=== PATIENT | female | born 1990 | race African-American/Black ===

== ENCOUNTER 2019-06-04 01:08 | Inpatient (IN) | payer OTHER ==
[2019-06-04] VITALS (7 sets, daily range): BP systolic 150–232; BP diastolic 85–134
[~2019-06-04] VITALS: Ht 172.7 cm; Wt 67.1 kg
--- NOTE | ~2019-06-04 | P ---
[facility] [place] [address] PROCEDURE REPORT Name: ODESSA JUARES Room #: 458-P [facility] IN .#: [id number] Admission: 06/04/19 ������������������ Attend Phys: Anjel Tuttle MD Discharge: ������������������ Date of : 88 Report #: [id number] THIS REPORT FOR: //name// CC: Anjel Lama MD DATE OF SERVICE: 06/06/2019 INPATIENT UPPER ENDOSCOPY BRIEF HISTORY: The patient is a 28-year-old woman with history of diabetes and also chronic nausea and vomiting. She has had symptoms for 4-5 years. She has been evaluated at [facility] in the past and was told she had gastroparesis. She reports that metoclopramide and transdermal scopolamine patch have not been helpful. She was admitted with persistent symptoms. It is also noted that she is a habitual marijuana user and uses it twice daily. PREOPERATIVE DIAGNOSIS: Worsening nausea and vomiting. POSTOPERATIVE DIAGNOSIS: Moderately severe diffuse gastritis. MEDICATIONS: Deep sedation with propofol per anesthesia. SPECIMENS: Biopsies of gastritis. ESTIMATED BLOOD LOSS: 3 mL. PROCEDURE: Esophagogastroduodenoscopy with biopsy. FINDINGS: Prior to propofol sedation, procedure of upper endoscopy was discussed with the patient as well as potential risks and its complications. She indicates she understands and desires to proceed. DESCRIPTION OF PROCEDURE: With the patient in left lateral decubitus position, the Olympus video endoscope was inserted in the cervical esophagus under direct vision without difficulty. Examination of this organ through its entire length revealed normal esophageal mucosa down the squamocolumnar junction. There is no evidence of ulcers, erosions, Kenny esophagus or hiatus hernia. Scope was advanced into the stomach and was examined on end view as well as retroflexed views. I did not see endoscopic evidence of gastroparesis with retained solids in the stomach. There was no evidence of outlet obstruction. There was erythema of the entire stomach. It was primarily in a linear configuration; however, the mucosa was intact, and no ulcers or erosions were seen. Upon retroflexion, no mass lesions were seen. A hiatus hernia was not seen. The pylorus was normal. Duodenal bulb was normal. Postbulbar duodenal sweep was [facility] [address] [place] [address] PROCEDURE REPORT Name: ODESSA JUARES Channing Room #: 458-P [facility] IN [facility].#: [id number] Admission: 06/04/19 ������������������ Attend Phys: Anjel Tuttle MD Discharge: ������������������ Date of : 89 Report #: [id number] inspected and noted to be unremarkable. At that point, the scope was slowly withdrawn and careful circumferential views confirmed the above findings. The patient tolerated the procedure well. DISPOSITION: The patient with worsening nausea and vomiting, which has been chronic. No abnormalities were noted on her examination today. She reports metoclopramide has not been helpful and transdermal scopolamine patch not been helpful. She has been using Zofran. She also has continued to smoke marijuana. At this time, would recommend she discontinue smoking marijuana, which may exacerbate her symptoms. She had a normal gastric emptying study yesterday. We can try erythromycin before meals and at bedtime. She also notes that her symptoms seem to worsen around the time of her menses. We will follow up on biopsies and make further recommendations. Also, ask the dietitian to see the patient with regards to gastroparesis and nausea and vomiting. ��������������������������������������������� ���������������������������������������� By: ��������������������������������������������� 1302 2213 Jewel Bush MD /nt
[~2019-06-04 01:08] MED LIST: APAP500 PO; HUMALOG100 UNIT/2 SQ; HUMULIN N100 UNIT/1 SUBQ; HUMULIN N100 UNIT/3 SQ; LANTUS100 UNIT/M SUBQ; PRENATAL COMPL1 EACH PO
[2019-06-04 01:36] LABS: BASOPHILS 0.5 % (0.0-2.0); EOSINOPHILS 0.1 % (0.0-3.0); HEMATOCRIT 33.4 % (37.0-47.0); HEMOGLOBIN 10.9 gm/dL (12.0-15.0); LYMPHOCYTES 10.6 % (24.0-44.0); MCH 29.6 pg (26.0-34.0); MCHC 32.6 g/dL (28.0-37.0); MONOCYTES 2.7 % (1.0-8.0); PLATELET COUNT 269 thou/uL (150-400); POLYS 86.1 % (36.0-66.0); RBC 3.67 mil/uL (4.20-5.00); RDW 14.6 % (10.5-14.5); WBC 11.6 thou/uL (4.0-11.0)
[2019-06-04 01:44] LABS: CALCIUM 8.8 mg/dL (8.5-10.1); CREATININE 4.3 mg/dL (0.6-1.0); POTASSIUM 4.4 mmol/L (3.5-5.1)
[2019-06-04] MEDS ORDERED: LISINOPRIL20 MG PO (01:45)
[2019-06-04 01:50] LABS: ALBUMIN 3.2 g/dL (3.4-5.0); TOTAL BILIRUBIN 0.6 mg/dL (<0.1-1.0); TOTAL PROTEIN 7.3 g/dL (6.4-8.2)
[2019-06-04 01:58] LABS: BE(vivo) -4.4 mmol/L (-2 to +3); HCO3 20.3 mmol/L (22.0-26.0); PO2 VENOUS 42.2 mmHg (35.0-45.0)
--- NOTE | 2019-06-04 06:00 | NUR ---
PT ARRIVED ON THE UNIT @0320 WITH C/O LOWER BACK PAIN AND N/V. EMESIS NOTED AND SENT TO LAB. PAIN MEDS GIVEN AND FLUIDS ALSO INFUSING. PT A&OX4. POC DONE AND CALL LIGHT WITHIN REACH. WILL CONTINUE TO MONITOR TILL EOS
--- NOTE | 2019-06-04 10:10 | NUR ---
Chart reviewed and case discussed with the care team. Pt admitted d/t nausea/vomiting and ARF. GI consult and kub pending. Pt is an insulin depend diabetic. She has health insurance [employer] and and was indep prior to admission. She is up ad raine in her room. She lives with her spouse and children. No cm interventions indicated at this time. Will remain available should dc needs arise.
--- NOTE | 2019-06-04 20:06 | NUR ---
Assumed pt care this am, pain was managed with medication. N and V has resolved for this shift. Maintained on clear liquids, for gastric emptying test dayna am, advised to be NPO post midnight and not to have any narcotics as well. endorsed to the night nurse. No signs of distrss have been noted not orther issues verbalized by the pt. POC followed.
[2019-06-05 03:15] VITALS: BP 151/87
--- NOTE | 2019-06-05 04:26 | NUR ---
ASSUMED CARE OF PT AT 1900HRS. PT IS AOX4 AND CALLS FOR HELP NEEDED. PT REPORTED SOME PAIN AND N/V. PT HAD 2 EMISIS EPISODE THIS SHIFT. PT WAS NPO SINCE MIDNIGHT. PT WAS ABLE TO GET COMFORTABLE AND SLEEP THIS SHIFT. NO OTHER S/S OF ACUTE DISTRESS. WILL CONTINUE TO MONITOR.
[2019-06-05 05:45] LABS: HEMATOCRIT 27.9 % (37.0-47.0); HEMOGLOBIN 9.4 gm/dL (12.0-15.0); MCH 30.7 pg (26.0-34.0); MCHC 33.6 g/dL (28.0-37.0); MCV 91.3 fL (80.0-100.0); RBC 3.06 mil/uL (4.20-5.00); RDW 14.5 % (10.5-14.5); WBC 7.9 thou/uL (4.0-11.0)
[2019-06-05 05:58] LABS: ALBUMIN 2.3 g/dL (3.4-5.0); CALCIUM 7.8 mg/dL (8.5-10.1); CREATININE 3.8 mg/dL (0.6-1.0); POTASSIUM 4.2 mmol/L (3.5-5.1)
[2019-06-05 07:34] VITALS: BP 166/95
[2019-06-05 16:07] VITALS: BP 153/95
--- NOTE | 2019-06-05 16:54 | NUR ---
QUIET UNEVENTFUL DAY. DENIED NAUSEA/VOMITING. HAD GASTRIC EMPTYING STUDY THIS AM. RETURNED TO ROOM AROUND 12 NOON. PROVIDED CLEAR LIQUIDS. MAIN COMPLAINT IS HEAD, STOMACH AND BACK PAIN FROM VOMITING ALL LAST NIGHT. HAS NOT VOMITED TODAY. WILL TRY A SOFT DIET FOR SUPPER. INSTRUCTED TO REMAIN NPO AFTER MIDNIGHT FOR EGD IN AM. CONSENT SIGNED.
[2019-06-05 17:27] LABS: URINE BILIRUBIN NEGATIVE (Negative); URINE BLOOD 3+ (Negative); URINE CLARITY CLEAR; URINE COLOR YELLOW; URINE GLUCOSE-RANDOM* TRACE (Negative); URINE KETONES NEGATIVE (Negative); URINE LEUKOCYTES NEGATIVE (Negative); URINE NITRITE NEGATIVE (Negative); URINE PROTEIN (DIPSTICK) 3+ (Negative); URINE UROBILINOGEN 0.2 E.U./dl (0.2-1.0)
[2019-06-05 17:38] LABS: CASTS None Seen /LPF (None Seen); SQUAMOUS >10 Many /LPF (0-3)
[2019-06-05 17:39] LABS: BACTERIA 1-9 Few /HPF (None Seen); CRYSTALS None Seen /LPF (None Seen); URINE WBC 0-5 Rare /HPF (0-5)
[2019-06-05 19:29] VITALS: BP 141/84
--- NOTE | 2019-06-06 03:56 | NUR ---
pain controlled this shift.patient is up at raine. patient has been npo since midnight. nausea meds given x1. patient refused insulin d/t being npo and not being able to eat. patient in bed asleep at this time breathing regular and unlaboured.
[2019-06-06 05:14] VITALS: BP 180/90
[2019-06-06 05:41] LABS: HEMATOCRIT 30.7 % (37.0-47.0); HEMOGLOBIN 10.2 gm/dL (12.0-15.0); MCH 30.2 pg (26.0-34.0); MCHC 33.2 g/dL (28.0-37.0); MCV 91.1 fL (80.0-100.0); RBC 3.37 mil/uL (4.20-5.00); RDW 14.7 % (10.5-14.5)
[2019-06-06 05:52] LABS: CALCIUM 7.2 mg/dL (8.5-10.1); CREATININE 3.4 mg/dL (0.6-1.0); PHOSPHORUS 2.8 mg/dL (2.5-4.9); POTASSIUM 4.1 mmol/L (3.5-5.1)
--- NOTE | 2019-06-06 07:39 | HC ---
[facility] [place] [address] CONSULTATION Name: ODESSA JUARES Room #: 458-P [facility] IN ..#: [id number] Admission: 06/04/19 ������������������ Attend Phys: Anjel Tuttle MD Discharge: ������������������ Date of : 88 Report #: [id number] THIS REPORT FOR: //name// CC: Anjel Lama REASON FOR CONSULTATION: Elevated creatinine. REASON FOR THE PRESENTATION: Abdominal pain. HISTORY OF PRESENT ILLNESS: This is a 28-year-old who tells me that she has been diabetic since the age of 10. She also tells me that she has been hospitalized on numerous occasions for her current symptoms, which include persistent nausea and vomiting. She was last seen at [facility] as per the patient. She has been taking marijuana to help her with the nausea and vomiting. She is presenting with the symptoms mentioned above and was found to have an elevated creatinine at 4.3 and was admitted for further evaluation and management. She was told that she has proteinuria in the past. She does not know her baseline kidney function. She is maintained on lisinopril. She did admit to diabetic retinopathy. She has had multiple pregnancies in the past, one of them ended up with an eclampsia event. I am being consulted to manage her acute kidney injury. PAST MEDICAL HISTORY: Diabetes mellitus and hypertension. PAST SURGICAL HISTORY: Cholecystectomy. SOCIAL HISTORY: She admits to marijuana usage. FAMILY HISTORY: Strong family history of diabetes mellitus. REVIEW OF SYSTEMS: GENERAL: No fever or chills. CARDIOVASCULAR: No chest pain or palpitation. No syncope. PULMONARY: No cough or hemoptysis. GASTROINTESTINAL: As per history of present illness. MUSCULOSKELETAL: No back pain. No joints pain. NEUROLOGICAL: No weakness. No numbness. SKIN: No rash or ulcerations. MEDICATIONS: The patient's current outpatient medications listed include lisinopril and Lantus. PHYSICAL EXAMINATION: VITAL SIGNS: Blood pressure is elevated at 166/95. HEAD AND NECK: No jugular venous distention, no bruit, no thyromegaly. CHEST: No crackles. [facility] [address] [address] CONSULTATION Name: ODESSA JUARES Room #: 458-P [facility]#: [id number] Admission: 06/04/19 ������������������ Attend Phys: Anjel Tuttle MD Discharge: ������������������ Date of : 88 Report #: [id number] CARDIOVASCULAR: No rub detected. ABDOMEN: Soft, nontender with no hepatosplenomegaly. LOWER EXTREMITIES: No edema with intact peripheral pulses. LABORATORY VALUES: From today were reviewed. Creatinine is down to 3.8 from a value of 4.3 yesterday. ASSESSMENT, IMPRESSION AND PLAN: 1. Acute kidney injury. 2. Diabetes mellitus. 3. Ongoing gastrointestinal symptoms. 4. Hypertension. 5. I am not really sure about the patient's baseline kidney function, but the fact that she had diabetic retinopathy in the past entail that she might be having an underlying chronic kidney disease related to longstanding diabetes mellitus. I will initiate the appropriate workup for the patient. 6. Obtain urine studies. 7. Obtain an ultrasound of the kidneys. 8. Keep on IV fluid. 9. Avoid nephrotoxins. 10. Gastrointestinal workup in progress. 11. We will ultimately need to be back on her lisinopril. 12. Obtain her [facility] medical records. 13. We will continue to follow during her hospital stay. ��������������������������������������������� <ELECTRONICALLY SIGNED> ���������������������������������������� By: Lars Roe MD ��������������������������������������������� 06/06/1940 8 Lars Roe MD /nt
[2019-06-06 07:43] VITALS: BP 159/98
[2019-06-06 14:10] VITALS: BP 142/88
[2019-06-06 17:35] LABS: URINE CREATININE-RANDOM* 55.7 mg/dL
--- NOTE | 2019-06-06 17:58 | NUR ---
Assumed pt care this am, pt was npo for the EGD. Pt has verbalized the presence of pain in her abdomen, managed with pain meds through out the shift. Blood sugar checks done, refused insulin while she was npo. Urine sample collected and sent to the lab. Nausea was noted early this am, relief after medication was given. POC followed, pt is passing gas but has not had a bowel movement, medication given cfluid intake and ambulation encouraged.
[2019-06-06 20:20] VITALS: BP 139/82
[2019-06-07 04:30] VITALS: BP 124/74
--- NOTE | 2019-06-07 07:19 | NUR ---
PATIENT ALERT AND ORIENTED X4. UP IN ROOM BY SELF. ACCUCHECK 97, SANDWICH GIVEN. ACCUCHECK TAKEN AGAIN AT 2215. WAS 178, LANTUS INSULIN GIVEN AT THAT TIME. C/O PAIN DURING NIGHT, MED GIVEN. THIS AM C/O NAUSEA, MED GIVEN.SLEPT OFF AND ON DURING NIGHT.
[2019-06-07 08:00] VITALS: BP 133/85
--- NOTE | 2019-06-07 14:13 | NUR ---
PT RESTING IN HER ROOM WATCHING TV. PT IS TO DISCHARGE TODAY WHEN PUT'S ORDERS IN COMPUTER. AND FRIEND AT BEDSIDE. PT W/O PAIN OR RESP DISTRESS AT THIS TIME. PT SELF CARE WITH ADLS. IS AMBULATORY. PLEASANT AND COOPERATIVE WITH CARE.
[2019-06-07] MEDS ORDERED: ERYTHROMYCIN250 M1 PO (14:42)
[2019-06-07] MEDS ORDERED: CARVEDILOL12.5 MG PO (14:42)
[2019-06-07] MEDS ORDERED: NORVASC5 MG PO (14:43)
[2019-06-07] MEDS ORDERED: COZAAR 50 MG TA50 M1 PO (14:43)
[2019-06-07] MEDS ORDERED: PROTONIX40 M1 PO (14:44)
[2019-06-07 15:08] VITALS: BP 133/85
[2019-06-07 15:57] VITALS: BP 133/85
[2019-06-07 16:05] LABS: ALBUMIN 2.3 g/dL (3.4-5.0); CALCIUM 7.7 mg/dL (8.5-10.1); CREATININE 3.9 mg/dL (0.6-1.0)
[2019-06-08 02:08] LABS: COMPLEMENT-C3 83 mg/dL (82-167); COMPLEMENT-C4 23 mg/dL (14-44)
[2019-06-09 13:07] LABS: ANA INTERPRETATION Negative (Negative)
--- NOTE | 2019-06-09 14:06 | PATH ---
[facility] [address] [address] [address] PATHOLOGY RPT PROCEDURE Name: ODESSA JUARES Channing Room #: 458-P DIS IN M.R.#: [id number] ������������������ Admission: 06/04/19 ������������������ Date of : 88 Discharge: 06/07/19 Report #: [id number] Path Case #: [id number] [facility] Accession Number: [id number] . 01 Material submitted: . stomach - BX GASTRITIS R/O H PYLORI . 01 Clinical history: . Gastritis, nausea, vomiting. . 02 Diagnosis: Gastric biopsy "gastric biopsy": - Mild chronic reactive gastropathy. - The immunoperoxidase stain for Helicobacter pylori is negative. ([facility]:[place]; 06/09/2019) QMS/06/09/2019 . 02 Electronically signed: . Quinton Sousa MD, Pathologist NPI- [id number] . 01 Gross description: . Received in formalin labeled "[place] Juares, biopsy gastritis rule out H. pylori" is a 1.3 x 0.4 x 0.2 cm aggregate of zarco-brown mucosa fragments. The specimen is submitted in A1. ([facility]; 06/08/2019) SYC/SYC . 02 Pathologist provided ICD-10: K31.9 . 02 CPT . 229161, Q45038 Specimen Comment: A courtesy copy of this report has been sent to Specimen Comment: [phone], , . Specimen Comment: Report sent to ,DR LAMBERT / DR MARTINEZ Specimen Comment: A duplicate report has been generated due to demographic updates. Performed at: [address], [place] [id number] MD Venkata Go MD Phone: [phone] Performed at: [address] [id number] MD Smitha Box MD Phone: [phone]
== END 2019-06-07 15:59 | disposition home or self-care (01) | DRG 391 ==
LOC: ER 01:08 → 4W 02:37 → EROBS 02:37 → 4W 03:20
PROVIDERS: Emergency Medicine; Hospitalist; Nurse Practitioner Family; ADMIT Hospitalist
PROC: 0DJ08ZZ Inspection of Upper Intestinal Tract, Via Natural or Artificial Opening Endoscopic (ICD-10-PCS; principal; 2019-06-06)
DX: K29.70 Gastritis, unspecified, without bleeding (principal); N17.0 Acute kidney failure with tubular necrosis; E11.43 Type 2 diabetes mellitus with diabetic autonomic (poly)neuropathy; K31.84 Gastroparesis; G43.909 Migraine, unspecified, not intractable, without status migrainosus; F17.210 Nicotine dependence, cigarettes, uncomplicated; F12.90 Cannabis use, unspecified, uncomplicated; N92.0 Excessive and frequent menstruation with regular cycle; D64.9 Anemia, unspecified; K59.00 Constipation, unspecified; E11.319 Type 2 diabetes mellitus with unspecified diabetic retinopathy without macular edema; N18.9 Chronic kidney disease, unspecified; E11.22 Type 2 diabetes mellitus with diabetic chronic kidney disease; I12.9 Hypertensive chronic kidney disease with stage 1 through stage 4 chronic kidney disease, or unspecified chronic kidney disease; E11.40 Type 2 diabetes mellitus with diabetic neuropathy, unspecified; Z90.49 Acquired absence of other specified parts of digestive tract; Z83.3 Family history of diabetes mellitus; Z79.4 Long term (current) use of insulin; Z79.899 Other long term (current) drug therapy; Z98.891 History of uterine scar from previous surgery
CPT/HCPCS: 10040; 62110; 62900; 70005

== ENCOUNTER 2019-08-11 15:28 | Inpatient (IN) | payer OTHER ==
[~2019-08-11] VITALS: Ht 172.7 cm; Wt 70.3 kg
--- NOTE | ~2019-08-11 | HC ---
[facility] [place] [address] CONSULTATION Name: ODESSA JUARES Room #: 219-P [facility] IN ..#: [id number] Admission: 08/11/19 Attend Phys: Parth Blandon MD Discharge: Date of : 89 Report #: [id number] THIS REPORT FOR: //name// CC: Parth Lama DATE OF SERVICE: 08/12/2019 REASON FOR CONSULTATION: End-stage renal disease with an elevated creatinine. REASON FOR PRESENTATION: Persistent nausea and vomiting. HISTORY OF PRESENT ILLNESS: This is a 29-year-old who is well known to me. She has end-stage renal disease with significant interstitial fibrosis and kidney damage on her kidney biopsy that was done few months ago. She runs a baseline creatinine of around 3.0. She has issues with persistent nausea and vomiting, none related to her CKD and end-stage renal disease. She presented with similar symptoms. She had extensive workup done in the past. She has noncompliance with medical care and she did not show up for her kidney education class. She wanted us to file for disability for her. When my nurse practitioner informed the patient that we cannot file for her disability and give her time off work, she was very upset and threatened to go to another physician. She presented yesterday with the same symptoms and was admitted to be further evaluated. She has history of diabetes mellitus. She is also known to have significant hypertension and has a significantly elevated blood pressure on her presentation. PAST MEDICAL HISTORY: 1. CKD stage 4. 2. Diabetes mellitus. 3. Hypertension. MEDICATIONS: 1. Losartan. 2. Amlodipine. 3. Pantoprazole. 4. Insulin. PAST SURGICAL HISTORY: 1. . 2. Right wrist fracture. 3. Recent kidney biopsy. SOCIAL HISTORY: Admits to marijuana, but she quit that per her about a month ago. She continues to smoke. [facility] [address] [place] [address] CONSULTATION Name: ODESSA JUARES Room #: 219-P [facility] IN [facility]#: [id number] Admission: 08/11/19 Attend Phys: Parth Blandon MD Discharge: Date of : 89 Report #: [id number] REVIEW OF SYSTEMS: GENERAL: Significant for weakness. CARDIOVASCULAR: No chest pain or palpitation. PULMONARY: No cough or hemoptysis. GASTROINTESTINAL: As per the history of present illness. GENITOURINARY: No frequency, no urgency. PHYSICAL EXAMINATION: GENERAL: The patient is alert and oriented. VITAL SIGNS: Blood pressure is 145/91. She is febrile with a temperature of 38.2. HEAD AND NECK: No jugular venous distention. CHEST: No crackles. CARDIOVASCULAR: No rub detected. ABDOMEN: Soft. Slight tenderness. LOWER EXTREMITIES: No edema with intact peripheral pulses. LABORATORY DATA: Reviewed. Hemoglobin is 10.3. Sodium is 138, potassium is 4.9, BUN is 29, creatinine is 5.1. Blood sugar is 161. IMPRESSION AND PLAN: 1. Chronic kidney disease, stage 4. 2. Acute kidney injury. 3. Persistent nausea and vomiting. 4. Diabetes mellitus. 5. Hypertension. 6. The patient is not uremic. Her current BUN and creatinine do not justify her recurrent issues with nausea and vomiting. There is no indication to initiate the patient on dialysis. We have explained for the patient that she will need to be seen in our outpatient clinic to arrange for her long-term kidney failure. The patient was not been biopsied, but we could not find her papers for disability and deter some time off from her work. She was threatening to find another physician who can handle those issues. She was informed that she ____ seek another opinion. As for now, I would continue with the IV fluid, symptomatic treatment for her nausea and vomiting. She had extensive workup for her nausea and vomiting and those laboratory, imaging were nonrevealing. She most recently had an EGD. I will check the patient's urine for substance screen given her marijuana abuse. Continue to pet adoption counselor about her medical care. By: 1129 2236 Lars Roe MD /nt
[~2019-08-11 15:28] MED LIST changes: +CARVEDILOL12.5 MG PO; +COZAAR 50 MG TA50 M1 PO; +ERYTHROMYCIN250 M1 PO; +LISINOPRIL20 MG PO; +NORVASC5 MG PO; +PROTONIX40 M1 PO
[2019-08-11 15:29] VITALS: BP 162/101
[2019-08-11 15:52] LABS: URINE BILIRUBIN NEGATIVE (Negative); URINE BLOOD 3+ (Negative); URINE CLARITY CLEAR; URINE COLOR YELLOW; URINE GLUCOSE-RANDOM* 1+ (Negative); URINE KETONES NEGATIVE (Negative); URINE LEUKOCYTES TRACE (Negative); URINE NITRITE NEGATIVE (Negative); URINE PROTEIN (DIPSTICK) 3+ (Negative); URINE UROBILINOGEN 0.2 E.U./dl (0.2-1.0)
[2019-08-11 16:02] LABS: BACTERIA None Seen /HPF (None Seen); CASTS None Seen /LPF (None Seen); CRYSTALS None Seen /LPF (None Seen); SQUAMOUS >10 Many /LPF (0-3); URINE RBC >20 Many /HPF (0-2)
[2019-08-11 16:14] LABS: ABSOLUTE NEUTROPHILS 6.1 thou/uL (1.4-8.2); BASOPHILS 0.6 % (0.0-2.0); EOSINOPHILS 0.6 % (0.0-3.0); HEMATOCRIT 31.3 % (37.0-47.0); HEMOGLOBIN 10.3 gm/dL (12.0-15.0); LYMPHOCYTES 17.4 % (24.0-44.0); MCH 29.9 pg (26.0-34.0); MCHC 32.8 g/dL (28.0-37.0); MCV 91.1 fL (80.0-100.0); PLATELET COUNT 268 thou/uL (150-400); POLYS 78.4 % (36.0-66.0); RBC 3.44 mil/uL (4.20-5.00); RDW 14.3 % (10.5-14.5); WBC 7.7 thou/uL (4.0-11.0)
[2019-08-11 16:24] LABS: CALCIUM 8.6 mg/dL (8.5-10.1); CREATININE 5.1 mg/dL (0.6-1.0); POTASSIUM 4.9 mmol/L (3.5-5.1)
[2019-08-11 16:29] LABS: ALBUMIN 2.8 g/dL (3.4-5.0); TOTAL BILIRUBIN 0.3 mg/dL (<0.1-1.0); TOTAL PROTEIN 6.9 g/dL (6.4-8.2)
[2019-08-11 19:16] LABS: URINE BILIRUBIN NEGATIVE (Negative); URINE BLOOD 3+ (Negative); URINE GLUCOSE-RANDOM* 1+ (Negative); URINE KETONES TRACE (Negative); URINE PROTEIN (DIPSTICK) 3+ (Negative); URINE SPECIFIC GRAVITY 1.015 (1.005-1.035)
[2019-08-11 19:18] LABS: URINE CLARITY TURBID; URINE COLOR RED; URINE LEUKOCYTES-REFLEX 1+ (Negative); URINE NITRITE-REFLEX POSITIVE (Negative)
[2019-08-11 19:22] LABS: CASTS None Seen /LPF (None Seen); CRYSTALS None Seen /LPF (None Seen); SQUAMOUS 0-3 Few /LPF (0-3); URINE RBC >20 Many /HPF (0-2)
[2019-08-11 19:23] LABS: BACTERIA-REFLEX 1-9 Few /HPF (None Seen); URINE WBC-REFLEX 6-15 Few /HPF (0-5)
[2019-08-12 10:34] VITALS: BP 152/103
[2019-08-12 11:20] VITALS: BP 145/91
[2019-08-12 11:49] VITALS: BP 142/85
--- NOTE | 2019-08-12 11:54 | NUR ---
PT ORIENTED TO ROOM AND UNIT. BED LOW AND LOCKED, SIDE RAILS UP X3 CALL LIGHT IN REACH. TELE APPLIED. WILL CONTINUE TO ASSESS.
[2019-08-12 16:24] VITALS: BP 142/88
--- NOTE | 2019-08-12 16:48 | NUR ---
REPORT GIVEN TO ROGERS WALKER.
--- NOTE | 2019-08-12 17:41 | NUR ---
ASSUMED PT CARE AT APPROXIMATELY 1700. PT A&O X4. PT DENIES HAVING CHEST PAIN. PT DENIES HAVING SOB. VITAL SIGNS STABLE. BLOOD SUGARS STABLE. PT STATED SHE DOES HAVE 7/10 PAIN IN HER ABD AND LOWER BACK. PT RECEIVED PRN ANALGESIC. PT STATED THE ANALGESIC HELPS RELEIVE PAIN. PT STATES SHE DOES HAVE NAUSEA. PT RECEIVED MEDICATION FOR NAUSEA. PT STATED MEDICATION RELIEVES NAUSEA. PT COMFORTABLE IN BED.
[2019-08-12 19:32] VITALS: BP 151/98
[2019-08-13 04:45] VITALS: BP 167/92
--- NOTE | 2019-08-13 05:17 | NUR ---
ASSUMED PT CARE AT 1900. PT VSS. PT C/O ABD AND LOWER BACK PAIN. MEDICATION GIVEN WIT A PARTIAL RELIEF. PT HAD ZERO COMPLAINTS OF NAUSEA. PT INSULIN WAS WITHHELD DUE TO LOW BS. PT HAD LOW BS AND GIVEN OJ WITH ICE CREAM AND BS INCREASED. PT SLEEPING. WILL CONTINUE TO MONITOR PT PER POC.
[2019-08-13 05:19] LABS: ALBUMIN 2.2 g/dL (3.4-5.0); CALCIUM 7.9 mg/dL (8.5-10.1); CREATININE 4.5 mg/dL (0.6-1.0); PHOSPHORUS 4.3 mg/dL (2.5-4.9); POTASSIUM 4.6 mmol/L (3.5-5.1)
[2019-08-13 11:32] VITALS: BP 180/100
[2019-08-13 11:55] VITALS: BP 162/97
== END 2019-08-13 12:16 | disposition home or self-care (01) | DRG 682 ==
LOC: ER 15:28 → 2N 18:50 → EROBS 18:50 → 2N 08-12 11:36
PROVIDERS: Emergency Medicine; Hospitalist; Physician Assistant; ADMIT Hospitalist
DX: N17.9 Acute kidney failure, unspecified (principal); E43 Unspecified severe protein-calorie malnutrition; N39.0 Urinary tract infection, site not specified; N18.6 End stage renal disease; E10.43 Type 1 diabetes mellitus with diabetic autonomic (poly)neuropathy; E10.22 Type 1 diabetes mellitus with diabetic chronic kidney disease; F12.10 Cannabis abuse, uncomplicated; F17.210 Nicotine dependence, cigarettes, uncomplicated; K31.84 Gastroparesis; G43.909 Migraine, unspecified, not intractable, without status migrainosus; I12.9 Hypertensive chronic kidney disease with stage 1 through stage 4 chronic kidney disease, or unspecified chronic kidney disease; E86.0 Dehydration; Z79.899 Other long term (current) drug therapy; Z90.49 Acquired absence of other specified parts of digestive tract; Z79.4 Long term (current) use of insulin; Z98.891 History of uterine scar from previous surgery; Z91.19 Patient's noncompliance with other medical treatment and regimen; Z68.23 Body mass index [BMI] 23.0-23.9, adult
CPT/HCPCS: 10081

== ENCOUNTER 2019-08-15 15:20 | Emergency (ER) | payer OTHER ==
[~2019-08-15] VITALS: Ht 172.7 cm; Wt 72.6 kg
[2019-08-15 15:42] LABS: URINE BILIRUBIN NEGATIVE (Negative); URINE BLOOD 2+ (Negative); URINE CLARITY CLEAR; URINE COLOR YELLOW; URINE GLUCOSE-RANDOM* 1+ (Negative); URINE KETONES NEGATIVE (Negative); URINE LEUKOCYTES-REFLEX NEGATIVE (Negative); URINE NITRITE-REFLEX NEGATIVE (Negative); URINE PROTEIN (DIPSTICK) 2+ (Negative); URINE UROBILINOGEN 0.2 E.U./dl (0.2-1.0)
[2019-08-15 15:54] LABS: BACTERIA-REFLEX 1-9 Few /HPF (None Seen); CASTS None Seen /LPF (None Seen); CRYSTALS None Seen /LPF (None Seen); SQUAMOUS 0-3 Few /LPF (0-3); URINE RBC 3-10 Few /HPF (0-2); URINE WBC-REFLEX 0-5 Rare /HPF (0-5)
[2019-08-15 15:58] LABS: ABSOLUTE NEUTROPHILS 6.8 thou/uL (1.4-8.2); BASOPHILS 0.4 % (0.0-2.0); EOSINOPHILS 0.3 % (0.0-3.0); HEMATOCRIT 30.7 % (37.0-47.0); LYMPHOCYTES 9.8 % (24.0-44.0); MCH 29.7 pg (26.0-34.0); MCHC 32.7 g/dL (28.0-37.0); MCV 90.9 fL (80.0-100.0); MONOCYTES 1.7 % (1.0-8.0); PLATELET COUNT 244 thou/uL (150-400); POLYS 87.8 % (36.0-66.0); RBC 3.37 mil/uL (4.20-5.00); RDW 14.6 % (10.5-14.5); WBC 7.7 thou/uL (4.0-11.0)
[2019-08-15 16:32] LABS: ALBUMIN 2.9 g/dL (3.4-5.0); CALCIUM 8.4 mg/dL (8.5-10.1); CREATININE 4.8 mg/dL (0.6-1.0); POTASSIUM 4.5 mmol/L (3.5-5.1); TOTAL BILIRUBIN 0.4 mg/dL (<0.1-1.0); TOTAL PROTEIN 6.7 g/dL (6.4-8.2)
[2019-08-15] MEDS ORDERED: PHENERGAN 25 MG25 M1 PO (18:23)
[2019-08-15] MEDS ORDERED: PROMS25 WY RECTAL (18:23)
[2019-08-15] MEDS ORDERED: PEPCID20 MG PO (18:23)
[2019-08-15] MEDS ORDERED: BENTYL 20 MG TA20 M1 PO (18:27)
[2019-08-15 19:50] VITALS: BP 204/102
--- NOTE | 2019-08-16 11:32 | EKG ---
[address] [address] ELECTROCARDIOGRAM REPORT Name: ODESSA JUARES Room #: [facility]#: [id number] Admission: 08/15/19 Attend Phys: Discharge: 08/15/19 Date of : 89 Report #: [id number] THIS REPORT FOR: //name// [facility] ED Test Date: 2019-08-15 Test Time: 15:42:01 Pat Name: ODESSA JUARES Department: Room: Gender: F Hotel Maid: goran : 1990 Requested By: Venkata Pillai Order Number: [id number] MD: Lg Mei Measurements Intervals [place] Rate: 86 P: 51 NC: 129 QRS: 52 QRSD: 78 T: 16 QT: 368 QTc: 440 Interpretive Statements Sinus rhythm Borderline T wave abnormalities Compared to ECG 01/31/2016 08:21:35 T-wave abnormality now present Electronically Signed On 08-16-2019 11:31:44 CDT by Lg Mei [email or web address] <ELECTRONICALLY SIGNED> By: Lg Mei MD 08/16/19 1131 1542 1542 Lg Mei MD /YURIDIA
== END 2019-08-15 19:50 | disposition still patient (30) ==
LOC: ER 15:20
PROVIDERS: Emergency Medicine
DX: E11.43 Type 2 diabetes mellitus with diabetic autonomic (poly)neuropathy (principal); K31.84 Gastroparesis; R11.2 Nausea with vomiting, unspecified; G43.909 Migraine, unspecified, not intractable, without status migrainosus; F17.210 Nicotine dependence, cigarettes, uncomplicated; Z98.890 Other specified postprocedural states; Z79.4 Long term (current) use of insulin

== ENCOUNTER 2020-08-01 23:24 | Observation (INO) | payer OTHER ==
[~2020-08-01] VITALS: Ht 175.3 cm; Wt 62.1 kg
--- NOTE | ~2020-08-01 | HC ---
[facility] [place] [address] CONSULTATION Name: ODESSA JUARES Room #: 458-P [facility] IN ..#: [id number] Admission: 08/02/20 Attend Phys: Sabina Vides MD Discharge: Date of : 89 Report #: [id number] THIS REPORT FOR: cc: Bruce Lama MD,Lars Reza MD, MD ~ CC: Sabina Lama DATE OF SERVICE: 08/02/2020 RENAL CONSULTATION REASON FOR CONSULTATION: Elevated creatinine with end-stage renal disease. REASON FOR PRESENTATION: Not feeling well. HISTORY OF PRESENT ILLNESS: This is a 30-year-old who is maintained on peritoneal dialysis. She has longstanding diabetes mellitus and hypertension. She tends to have recurrent admissions for intractable nausea and vomiting. She had those symptoms in the last few days. She was unable to keep things down. She was started on IV fluid. On arrival to the Emergency Room, she was found to be hypokalemic. She feels much better this morning. She wants to go home. From the end-stage renal disease perspective, the patient was started on hemodialysis a few months ago for her ongoing issues with nausea and vomiting, uremic symptoms. She has longstanding diabetes mellitus. She tends to have flares up of her gastroparesis with frequent improvement after starting her on appropriate medications. PAST MEDICAL HISTORY: 1. End-stage renal disease, maintained on hemodialysis. 2. Diabetes mellitus. 3. Hypertension. MEDICATIONS: 1. Lispro insulin. 2. Lantus insulin. 3. Torsemide. 4. Potassium supplementation. 5. Pantoprazole. 6. Promethazine. ALLERGIES: None. REVIEW OF SYSTEMS: GENERAL: No fever, but significant weakness. [facility] [address] [place] [address] CONSULTATION Name: ODESSA JUARES Channing Room #: 458-P [facility] IN [facility].#: [id number] Admission: 08/02/20 Attend Phys: Sabina Vides MD Discharge: Date of : [birth year] Report #: [id number] CARDIOVASCULAR: No chest pain or palpitation. PULMONARY: No cough or hemoptysis. GASTROINTESTINAL: As per the history of present illness. GENITOURINARY: No frequency, no urgency. FAMILY HISTORY: Significant for diabetes mellitus. SOCIAL HISTORY: She is , lives with her . She has a son. PHYSICAL EXAMINATION: GENERAL: She is awake, alert, oriented, sitting in the bed with no apparent distress. VITAL SIGNS: Blood pressure is 145/87, temperature is 36.8. HEAD AND NECK: No jugular venous distention. CHEST: No crackles. CARDIOVASCULAR: No rub detected. ABDOMEN: Soft, nontender. EXTREMITIES: Lower extremities, no edema. LABORATORY DATA: White blood cell count is 8.1, hemoglobin is 14.5. Sodium is 141, potassium is 2.6, chloride is 96, carbon dioxide 32, BUN is 26, creatinine 17.4. ASSESSMENT, IMPRESSION AND PLAN: 1. End-stage renal disease, maintained on peritoneal dialysis. 2. Hypokalemia. 3. The patient is very adamant about going home. She tells me that she is very anxious about the situation in the hospital and the current COVID-19 status. I could handle her potassium supplementation as an outpatient. She is to continue with the usual peritoneal dialysis regimen. I will leave the decision whether to discharge the patient or not to the primary team. By: 0820 0929 Lars Roe MD /nt
[~2020-08-01 23:24] MED LIST changes: +BENTYL 20 MG TA20 M1 PO; +PEPCID20 MG PO; +PHENERGAN 25 MG25 M1 PO; +PROMS25 WY RECTAL
[2020-08-01 23:28] VITALS: BP 106/71
[2020-08-01] MEDS ORDERED: TORSEMIDE10 MG PO (23:40)
[2020-08-01] MEDS ORDERED: ZESTRIL40 MG PO (23:40)
[2020-08-01] MEDS ORDERED: ROCALTROL0.25 MCG PO (23:40)
[2020-08-01] MEDS ORDERED: RENAL-VITE TAB0.8 MG PO (23:42)
[2020-08-01] MEDS ORDERED: POTASSIUM20 PO (23:42)
[2020-08-02 00:07] LABS: ABSOLUTE NEUTROPHILS 5.1 thou/uL (1.4-8.2); BASOPHILS 0.4 % (0.0-2.0); EOSINOPHILS 2.2 % (0.0-3.0); HEMATOCRIT 44.1 % (37.0-47.0); HEMOGLOBIN 14.5 gm/dL (12.0-15.0); LYMPHOCYTES 26.6 % (24.0-44.0); MCH 29.8 pg (26.0-34.0); MCHC 32.8 g/dL (28.0-37.0); MCV 90.8 fL (80.0-100.0); PLATELET COUNT 196 thou/uL (150-400); POLYS 62.8 % (36.0-66.0); RBC 4.86 mil/uL (4.20-5.00); RDW 14.7 % (10.5-14.5); WBC 8.1 thou/uL (4.0-11.0)
[2020-08-02 00:08] LABS: URINE BILIRUBIN 1+ (Negative); URINE BLOOD TRACE (Negative); URINE CLARITY SL CLOUDY; URINE COLOR YELLOW; URINE GLUCOSE-RANDOM* NEGATIVE (Negative); URINE KETONES TRACE (Negative); URINE NITRITE-REFLEX NEGATIVE (Negative); URINE PROTEIN (DIPSTICK) 3+ (Negative); URINE SPECIFIC GRAVITY >= 1.030 (1.005-1.035); URINE UROBILINOGEN 0.2 E.U./dl (0.2-1.0)
[2020-08-02 00:10] LABS: ICTOTEST (BILI CONFIRMATORY) Positive (Negative); URINE LEUKOCYTES-REFLEX 2+ (Negative)
[2020-08-02 00:18] LABS: CASTS None Seen /LPF (None Seen); CRYSTALS None Seen /LPF (None Seen); MUCUS 0-3 Light strn/LPF (None Seen); SQUAMOUS None Seen /LPF (0-3); URINE RBC 3-10 Few /HPF (0-2); URINE WBC-REFLEX >25 Many /HPF (0-5); YEAST-REFLEX Present (None Seen)
[2020-08-02 00:19] LABS: RENAL EPITHELIAL CELLS 0-3 Few /LPF (None Seen); TRANSITIONAL EPITHEL CELL 0-3 Few /LPF (None Seen)
[2020-08-02 00:27] LABS: ALBUMIN 3.1 g/dL (3.4-5.0); ANION GAP 13 mmol/L (7-16); BUN 26 mg/dL (7-18); CALCIUM 8.9 mg/dL (8.5-10.1); CHLORIDE 92 mmol/L (98-107); CO2 36 mmol/L (21-32); CREATININE 16.1 mg/dL (0.6-1.0); GLUCOSE 165 mg/dL (74-106); LIPASE 60 U/L (73-393); SGOT 9 U/L (15-37); SGPT 14 U/L (30-65); SODIUM 141 mmol/L (136-145); TOTAL BILIRUBIN 0.7 mg/dL (0.2-1.0); TOTAL PROTEIN 7.9 g/dL (6.4-8.2); TROPONIN-I <0.06 ng/mL (<0.06)
[2020-08-02 00:29] LABS: POTASSIUM 2.9 mmol/L (3.5-5.1)
[2020-08-02 01:11] VITALS: BP 127/94
[2020-08-02 01:14] LABS: PROTIME 10.2 Seconds (9.3-11.4)
[2020-08-02 01:24] VITALS: BP 138/80
[2020-08-02 01:40] VITALS: BP 142/87
[2020-08-02 04:26] LABS: CALCIUM 8.4 mg/dL (8.5-10.1); MAGNESIUM 2.6 mg/dL (1.8-2.4)
[2020-08-02 04:28] LABS: CREATININE 17.4 mg/dL (0.6-1.0); POTASSIUM 2.6 mmol/L (3.5-5.1)
[2020-08-02 05:30] VITALS: BP 133/74
--- NOTE | 2020-08-02 08:13 | EKG ---
[facility] [place] [address] ELECTROCARDIOGRAM REPORT Name: ODESSA JUARES Room #: 458-P ADM IN M.R.#: [id number] Admission: 08/02/20 Attend Phys: Sabina Vides MD Discharge: Date of : 88 Report #: [id number] THIS REPORT FOR: cc: Bruce Lama MD, Michael D. MD Couchonnal, Luis F. MD ~ THIS REPORT FOR: //name// [facility] ED Test Date: 2020-08-02 Test Time: 00:25:25 Pat Name: ODESSA JUARES Department: Room: [facility] Gender: F Website/Blog Editor: JESSICA : 1990 Requested By: Chapin Munoz Order Number: [id number] MD: Lg Mei Measurements Intervals [place] Rate: 82 P: 60 OK: 140 QRS: 66 QRSD: 95 T: -74 QT: 391 QTc: 457 Interpretive Statements Sinus rhythm Probable left atrial enlargement Abnormal T, consider ischemia, diffuse leads Compared to ECG 08/15/2019 15:42:01 Possible ischemia now present T-wave abnormality still present Electronically Signed On 08-02-2020 8:13:10 CDT by Lg Mei [email or web address] <ELECTRONICALLY SIGNED> By: Lg Mei MD 08/02/20 0813 Lg eMi MD /EPI
--- NOTE | 2020-08-02 08:18 | NUR ---
Assumed patient care at 0715. Vital signs stable, LSCTA, ABD soft and slightly tender, skin is clean, warm, dry and intact; she rates her abdominal pain at a "level four." Patient is pleasant and cooperative. Dr Roe here this am, he informed this nurse that "patient can go home today." Will inform Dr Vides and prepare patient for Discharge.
[2020-08-02] MEDS ORDERED: CEFUROXIME250 MG PO (10:48)
[2020-08-02 11:23] VITALS: BP 145/87
== END 2020-08-02 12:04 | disposition home or self-care (01) ==
LOC: ER 23:24 → 4W 08-02 00:58 → EROBS 08-02 00:58 → 4W 08-02 01:29
PROVIDERS: Emergency Medicine; Nurse Practitioner Family; ADMIT Hospitalist; ATTEND Hospitalist
DX: R11.2 Nausea with vomiting, unspecified (principal); K31.84 Gastroparesis; I12.0 Hypertensive chronic kidney disease with stage 5 chronic kidney disease or end stage renal disease; E11.22 Type 2 diabetes mellitus with diabetic chronic kidney disease; N18.6 End stage renal disease; N39.0 Urinary tract infection, site not specified; E87.6 Hypokalemia; F12.10 Cannabis abuse, uncomplicated; N17.9 Acute kidney failure, unspecified; F17.210 Nicotine dependence, cigarettes, uncomplicated; Z79.4 Long term (current) use of insulin; Z79.899 Other long term (current) drug therapy

== ENCOUNTER 2020-08-28 21:13 | Emergency (ER) | payer OTHER ==
[~2020-08-28] VITALS: Ht 175.3 cm; Wt 59.0 kg
[~2020-08-28 21:13] MED LIST changes: +CEFUROXIME250 MG PO; +POTASSIUM20 PO; +RENAL-VITE TAB0.8 MG PO; +ROCALTROL0.25 MCG PO; +TORSEMIDE10 MG PO; +ZESTRIL40 MG PO
[2020-08-28 23:14] LABS: ABSOLUTE NEUTROPHILS 5.6 thou/uL (1.4-8.2); BASOPHILS 0.6 % (0.0-2.0); EOSINOPHILS 1.8 % (0.0-3.0); HEMATOCRIT 42.6 % (37.0-47.0); HEMOGLOBIN 14.2 gm/dL (12.0-15.0); LYMPHOCYTES 26.9 % (24.0-44.0); MCH 29.9 pg (26.0-34.0); MCHC 33.4 g/dL (28.0-37.0); MCV 89.8 fL (80.0-100.0); MONOCYTES 6.2 % (1.0-8.0); PLATELET COUNT 197 thou/uL (150-400); POLYS 64.5 % (36.0-66.0); RBC 4.75 mil/uL (4.20-5.00); RDW 15.1 % (10.5-14.5); WBC 8.7 thou/uL (4.0-11.0)
[2020-08-28 23:22] LABS: CALCIUM 9.1 mg/dL (8.5-10.1); CREATININE 13.4 mg/dL (0.6-1.0)
[2020-08-28 23:28] LABS: ALBUMIN 2.9 g/dL (3.4-5.0); TOTAL BILIRUBIN 0.7 mg/dL (0.2-1.0); TOTAL PROTEIN 7.6 g/dL (6.4-8.2)
[2020-08-28 23:34] LABS: POTASSIUM 3.7 mmol/L (3.5-5.1)
[2020-08-29 00:09] VITALS: BP 107/62
--- NOTE | 2020-08-30 07:41 | EKG ---
[facility] [place] [address] ELECTROCARDIOGRAM REPORT Name: ODESSA JUARES Room #: DEP [facility]#: [id number] Admission: 08/28/20 Attend Phys: Discharge: 08/29/20 Date of : [birth year] Report #: [id number] THIS REPORT FOR: cc: Bruce Lama MD, Michael D. MD Lundgren,Hai Moyer MD [facility] ~ THIS REPORT FOR: //name// [facility] ED Test Date: 2020-08-28 Test Time: 21:44:02 Pat Name: ODESSA JUARES Department: Room: Gender: F Drupal Developer: zafar : 1990 Requested By: Bruce Sandoval Order Number: [id number] MD: Hai Munoz Measurements Intervals [place] Rate: 97 P: 66 WI: 131 QRS: 75 QRSD: 109 T: -70 QT: 357 QTc: 454 Interpretive Statements Sinus rhythm Abnormal T, consider ischemia, inferior leads Compared to ECG 08/02/2020 00:25:25 No significant changes Electronically Signed On 08-30-2020 7:41:24 CDT by Hai Munoz [email or web address] <ELECTRONICALLY SIGNED> By: Hai Munoz MD, [facility] 08/30/20 0741 43 43 Hai Munoz MD, [facility] /EPI
== END 2020-08-29 00:10 | disposition home or self-care (01) ==
LOC: ER 21:13
PROVIDERS: Emergency Medicine
DX: E11.43 Type 2 diabetes mellitus with diabetic autonomic (poly)neuropathy (principal); K31.84 Gastroparesis; R11.2 Nausea with vomiting, unspecified; R42 Dizziness and giddiness; E11.22 Type 2 diabetes mellitus with diabetic chronic kidney disease; I12.0 Hypertensive chronic kidney disease with stage 5 chronic kidney disease or end stage renal disease; N18.6 End stage renal disease; F17.210 Nicotine dependence, cigarettes, uncomplicated; G43.909 Migraine, unspecified, not intractable, without status migrainosus; Z99.2 Dependence on renal dialysis; Z79.2 Long term (current) use of antibiotics; Z79.899 Other long term (current) drug therapy; Z79.4 Long term (current) use of insulin

== ENCOUNTER 2020-09-08 02:54 | Emergency (ER) | payer OTHER ==
[~2020-09-08] VITALS: Ht 172.7 cm; Wt 62.6 kg
[2020-09-08 03:25] LABS: ABSOLUTE NEUTROPHILS 5.3 thou/uL (1.4-8.2); BASOPHILS 0.4 % (0.0-2.0); EOSINOPHILS 0.7 % (0.0-3.0); HEMATOCRIT 46.1 % (37.0-47.0); LYMPHOCYTES 28.8 % (24.0-44.0); MCH 29.3 pg (26.0-34.0); MCHC 32.6 g/dL (28.0-37.0); MONOCYTES 6.7 % (1.0-8.0); PLATELET COUNT 213 thou/uL (150-400); POLYS 63.4 % (36.0-66.0); RBC 5.12 mil/uL (4.20-5.00); RDW 15.4 % (10.5-14.5); WBC 8.4 thou/uL (4.0-11.0)
[2020-09-08 03:46] LABS: CALCIUM 9.4 mg/dL (8.5-10.1); CREATININE 18.8 mg/dL (0.6-1.0); DIRECT BILIRUBIN 0.2 mg/dL (<0.1-0.2); TOTAL BILIRUBIN 0.8 mg/dL (0.2-1.0); TOTAL PROTEIN 7.2 g/dL (6.4-8.2)
[2020-09-08 03:48] LABS: POTASSIUM 2.5 mmol/L (3.5-5.1)
[2020-09-08 07:10] VITALS: BP 99/51
[2020-09-09] MEDS ORDERED: ALPRAZOLAM 0.50.5 M1 PO (21:20)
[2020-09-09] MEDS ORDERED: LISINOPRIL40 MG PO (21:20)
[2020-09-09] MEDS ORDERED: OXYCODON-ACETA1 EAC1 PO (21:20)
== END 2020-09-08 07:12 | disposition home or self-care (01) ==
LOC: ER 02:54
PROVIDERS: Emergency Medicine
DX: R11.2 Nausea with vomiting, unspecified (principal); R10.32 Left lower quadrant pain; I12.0 Hypertensive chronic kidney disease with stage 5 chronic kidney disease or end stage renal disease; E11.22 Type 2 diabetes mellitus with diabetic chronic kidney disease; N18.6 End stage renal disease; G43.909 Migraine, unspecified, not intractable, without status migrainosus; F17.210 Nicotine dependence, cigarettes, uncomplicated; Z79.4 Long term (current) use of insulin; Z79.899 Other long term (current) drug therapy

== ENCOUNTER 2020-09-09 19:41 | Emergency (ER) | payer OTHER ==
[~2020-09-09] VITALS: Ht 172.7 cm; Wt 62.6 kg
[2020-09-09 20:15] LABS: ABSOLUTE NEUTROPHILS 4.6 thou/uL (1.4-8.2); BASOPHILS 0.4 % (0.0-2.0); EOSINOPHILS 1.9 % (0.0-3.0); HEMATOCRIT 41.8 % (37.0-47.0); HEMOGLOBIN 13.4 gm/dL (12.0-15.0); LYMPHOCYTES 30.1 % (24.0-44.0); MCH 29.3 pg (26.0-34.0); MCV 91.3 fL (80.0-100.0); MONOCYTES 6.3 % (1.0-8.0); PLATELET COUNT 170 thou/uL (150-400); POLYS 61.3 % (36.0-66.0); RBC 4.58 mil/uL (4.20-5.00); RDW 15.7 % (10.5-14.5); WBC 7.5 thou/uL (4.0-11.0)
[2020-09-09 20:37] LABS: ALBUMIN 2.6 g/dL (3.4-5.0); CALCIUM 8.8 mg/dL (8.5-10.1); TOTAL BILIRUBIN 0.6 mg/dL (0.2-1.0); TOTAL PROTEIN 6.3 g/dL (6.4-8.2)
[2020-09-09 20:41] LABS: CREATININE 16.9 mg/dL (0.6-1.0)
[2020-09-09 20:42] LABS: POTASSIUM 2.6 mmol/L (3.5-5.1)
[2020-09-09] MEDS ORDERED: ALPRAZOLAM 0.50.5 M1 PO (21:20)
[2020-09-09] MEDS ORDERED: LISINOPRIL40 MG PO (21:20)
[2020-09-09] MEDS ORDERED: OXYCODON-ACETA1 EAC1 PO (21:20)
[2020-09-09 23:11] VITALS: BP 96/58
--- NOTE | 2020-09-10 07:45 | EKG ---
[facility] [place] [address] ELECTROCARDIOGRAM REPORT Name: ODESSA JUARES Channing Room #: DEP [facility]#: [id number] Admission: 09/09/20 Attend Phys: Discharge: 09/09/20 Date of : [birth year] Report #: [id number] THIS REPORT FOR: cc: Bruce Lama MD, Michael D. MD Santiago, Patrick MD [facility] ~ THIS REPORT FOR: //name// [facility] ED Test Date: 2020-09-09 Test Time: 20:56:34 Pat Name: ODESSA JUARES Department: Room: Gender: F Heel Reducer: shelby : 1990 Requested By: Sea Lenz Order Number: [id number] MD: Isidoro Doan Measurements Intervals [place] Rate: 99 P: 61 FL: 138 QRS: 66 QRSD: 92 T: -74 QT: 342 QTc: 439 Interpretive Statements Sinus rhythm Abnormal T, consider ischemia, diffuse leads Baseline wander in lead(s) I,III,aVL Compared to ECG 08/28/2020 21:44:02 No significant changes Electronically Signed On 09-10-2020 7:45:06 CDT by Isidoro Doan [email or web address] <ELECTRONICALLY SIGNED> By: Isidoro Doan MD, FACC 09/10/2045 55 55 Isidoro Doan MD, FACC /EPI
== END 2020-09-09 23:17 | disposition home or self-care (01) ==
LOC: ER 19:41
PROVIDERS: Surgery
DX: R11.2 Nausea with vomiting, unspecified (principal); G43.909 Migraine, unspecified, not intractable, without status migrainosus; F17.210 Nicotine dependence, cigarettes, uncomplicated; I12.0 Hypertensive chronic kidney disease with stage 5 chronic kidney disease or end stage renal disease; E11.22 Type 2 diabetes mellitus with diabetic chronic kidney disease; N18.6 End stage renal disease; Z79.4 Long term (current) use of insulin; Z79.899 Other long term (current) drug therapy

== ENCOUNTER 2020-09-15 21:54 | Inpatient (IN) | payer OTHER ==
[~2020-09-15] VITALS: Ht 175.3 cm; Wt 57.2 kg
[~2020-09-15 21:54] MED LIST changes: +ALPRAZOLAM 0.50.5 M1 PO; +LISINOPRIL40 MG PO; +OXYCODON-ACETA1 EAC1 PO
[2020-09-15 21:55] VITALS: BP 80/49
[2020-09-15 22:21] LABS: ABSOLUTE NEUTROPHILS 7.6 thou/uL (1.4-8.2); BASOPHILS 0.4 % (0.0-2.0); EOSINOPHILS 0.8 % (0.0-3.0); HEMATOCRIT 44.8 % (37.0-47.0); HEMOGLOBIN 14.5 gm/dL (12.0-15.0); LYMPHOCYTES 16.6 % (24.0-44.0); MCH 29.3 pg (26.0-34.0); MCHC 32.3 g/dL (28.0-37.0); MCV 90.9 fL (80.0-100.0); MONOCYTES 5.5 % (1.0-8.0); PLATELET COUNT 224 thou/uL (150-400); POLYS 76.7 % (36.0-66.0); RBC 4.93 mil/uL (4.20-5.00); RDW 15.3 % (10.5-14.5); WBC 9.9 thou/uL (4.0-11.0)
[2020-09-15 22:26] LABS: CALCIUM 9.9 mg/dL (8.5-10.1); CREATININE 17.5 mg/dL (0.6-1.0); POTASSIUM 3.6 mmol/L (3.5-5.1)
[2020-09-15 22:54] LABS: ALBUMIN 2.9 g/dL (3.4-5.0); TOTAL BILIRUBIN 0.7 mg/dL (0.2-1.0); TOTAL PROTEIN 7.4 g/dL (6.4-8.2)
[2020-09-15 23:21] LABS: URINE BILIRUBIN 2+ (Negative); URINE BLOOD NEGATIVE (Negative); URINE CLARITY CLOUDY; URINE COLOR YELLOW; URINE GLUCOSE-RANDOM* NEGATIVE (Negative); URINE KETONES 1+ (Negative); URINE LEUKOCYTES-REFLEX 2+ (Negative); URINE NITRITE-REFLEX NEGATIVE (Negative); URINE PROTEIN (DIPSTICK) 2+ (Negative); URINE SPECIFIC GRAVITY >= 1.030 (1.005-1.035); URINE UROBILINOGEN 0.2 E.U./dl (0.2-1.0)
[2020-09-15 23:28] LABS: CASTS None Seen /LPF (None Seen); CRYSTALS None Seen /LPF (None Seen); MUCUS 4-6 Moderate strn/LPF (None Seen); SQUAMOUS 4-10 Moderate /LPF (0-3); WBC CLUMPS Many (None Seen)
[2020-09-16] VITALS (7 sets, daily range): BP systolic 95–115; BP diastolic 54–76
--- NOTE | 2020-09-16 00:55 | NUR ---
HAND OFF TOOL SENT TO [facility]
--- NOTE | 2020-09-16 04:41 | NUR ---
ADMITTED FROM ER UNDER 'S CARE. SEEN BY KASIA HAM DOPE EDGER FOR . VSS. NO S/S ACUTE DISTRESS NOTED OR REPORTED AT THIS TIME. WILL CONT TO MONITOR FOR ANY CHANGES IN CONDITION.
--- NOTE | 2020-09-16 08:39 | EKG ---
[facility] [place] [address] ELECTROCARDIOGRAM REPORT Name: ODESSA JUARES Room #: 463- ADM IN M.R.#: [id number] Admission: 09/16/20 Attend Phys: Parth Blandon MD Discharge: Date of : [birth year] Report #: [id number] THIS REPORT FOR: cc: Bruce Lama MD, Michael D. MD Lundgren,Hai Moyer MD [facility] ~ THIS REPORT FOR: //name// [facility] ED Test Date: 2020-09-15 Test Time: 22:09:33 Pat Name: ODESSA JUARES Department: Room: 463 Gender: F Wood Patternmaker: LAYNE : 1990 Requested By: Parth Blandon Order Number: [id number] MD: Hai Munoz Measurements Intervals [place] Rate: 116 P: 68 [place]: 131 QRS: 76 QRSD: 95 T: -35 QT: 311 QTc: 433 Interpretive Statements Sinus tachycardia Probable left atrial enlargement Nonspecific ST segment abnormality Baseline wander in lead(s) V6 Compared to ECG 09/09/2020 20:56:34 No significant change was found Electronically Signed On 09-16-2020 8:38:51 CDT by Hai Munoz [email or web address] <ELECTRONICALLY SIGNED> By: Hai Munoz MD, FACC 09/16/20 0838 08 08 Hai Munoz MD, FACC /EPI
--- NOTE | 2020-09-16 08:40 | EKG ---
[facility] [place] [address] ELECTROCARDIOGRAM REPORT Name: ODESSA JUARES Room #: 463- ADM IN M.R.#: [id number] Admission: 09/16/20 Attend Phys: Parth Blandon MD Discharge: Date of : 88 Report #: [id number] THIS REPORT FOR: cc: Bruce Lama MD, Michael D. MD Lundgren,Hai Moyer MD [facility] ~ THIS REPORT FOR: //name// [facility] ED Test Date: 2020-09-15 Test Time: 22:29:22 Pat Name: ODESSA JUARES Department: Room: 463 P Gender: F Microsoft Office Instructor: LAYNE : 1990 Requested By: Parth Blandon Order Number: [id number] MD: Hai Munoz Measurements Intervals [place] Rate: 115 P: 54 AR: 131 QRS: 70 QRSD: 93 T: -67 QT: 316 QTc: 437 Interpretive Statements Sinus tachycardia Abnormal T, consider ischemia, inferior leads Compared to ECG 09/15/2020 22:09:33 No significant change was found Electronically Signed On 09-16-2020 8:39:51 CDT by Hai Munoz [email or web address] <ELECTRONICALLY SIGNED> By: Hai Munoz MD, FACC 09/16/2039 28 28 Hai Munoz MD, FACC /EPI
--- NOTE | 2020-09-17 04:22 | NUR ---
ASSUMED PT CARE AROUND 1930. AXOX4. PERSISTENT NAUSEA/VOMITING. REPORTED TO FATOUMATA VOCATIONAL TECHNICAL EDUCATION TEACHER AND RECEVIED ORDERS FOR NPO AND MORE ANTI EMETICS. PD INITIATED PER DIALYSIS NURSE WITHOUT ANY PROBLEMS AT THIS TIME. NO S/S ACUTE DISTRESS NOTED OR REPORTED AT THIS TIME. WILL CONT TO MONITOR FOR ANY CHANGES IN CONDITION.
--- NOTE | 2020-09-17 04:57 | NUR ---
WHILE ADMINISTERING IV MEDS PT C/O PAIN AT IV SITE. NO S/S INFECTION OR INFILTRATION NOTED. HOWEVER PT KEPT INSISTING TO TAKE THE IV OUT. TOOK THE IV OUT FROM RFA AND NEW IV PLACED ON CARSON
[2020-09-17 06:13] LABS: HEMATOCRIT 36.1 % (37.0-47.0); MCH 29.4 pg (26.0-34.0); MCHC 32.1 g/dL (28.0-37.0); MCV 91.6 fL (80.0-100.0); RBC 3.94 mil/uL (4.20-5.00); RDW 15.5 % (10.5-14.5); WBC 5.4 thou/uL (4.0-11.0)
[2020-09-17 06:20] LABS: HEMOGLOBIN 11.6 gm/dL (12.0-15.0)
[2020-09-17 06:25] LABS: CALCIUM 8.8 mg/dL (8.5-10.1)
[2020-09-17 06:30] LABS: CREATININE 14.5 mg/dL (0.6-1.0); POTASSIUM 2.9 mmol/L (3.5-5.1)
[2020-09-17 15:20] VITALS: BP 123/82
--- NOTE | 2020-09-17 15:52 | NUR ---
PT ADMITTED RELATED TO UTI,N/V. CM REVIEWED CHART AND SPOKE WITH CARE TEAM. CM CALLED AND SPOKE WITH PT OVER THE PHONE THIS DAY. PT APPEARED TO BE A&O X4. CM ROLE INTRODUCED. PT INDICATED SHE LIVES IN A HOUSE WITH HER SPOUSE AND KIDS. SHE INDICATED 5 STEPS TO ENTER AND NO STEPS INSIDE. 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 SHE INDICATED THAT HER SPOUSE HAD ASSISTED HER WITH ADLS SWIMMING POOL SALESPERSON. PT'S PCP IS DR. ANICETO LAMBERT. SHE DOES PERITONEAL DIALYSIS THROUGH [facility]. PT INDICATED SHE PLANS TO RETURN HOME ONCE MEDICALLY STABLE. CM TO FOLLOW INDICATED SHOULD ANY DC MEEDS ARISE.
[2020-09-17 19:32] VITALS: BP 103/68
--- NOTE | 2020-09-17 19:59 | NUR ---
PT A&OX4, VSS, PAIN IN BACK AND ABDOMEN. FENTANYL GIVEN FOR PAIN. PATIENT HAD ONE EPISODE OF NAUSEA THIS AM, NOTHING FOR REST OF DAY. COMPAZINE GIVEN THIS AM. PATIENT COMPLETED EGD. PATIENT COMPLAINT OF IV IRRITATION. NEW IV PLACED RIGHT FA. LEFT DIALYSIS FISTULA INTACT. PATIENT GETS DAY PERITONEAL DIALYSIS. PATIENT MOVED TO SOLID FOODS, DENIES N/V. PATIENT UNABLE TO COMPLETE IV POTASSIUM AND DID TAKE PO 40MEQ. AT BEDSIDE. NO SIGNS OF DISTRESS. WILL CONTINUE TO MONITOR.
--- NOTE | 2020-09-18 06:31 | NUR ---
VSS-AFEBRILE. CRITICAL K+ OVERNIGHT, UNABLE TO TOLERATE k+ IV INFUSION DUE TO BURNING. RATE WAS LOWERED, AND WAS STILL UNABLE TO TOLERATE. Isaac WHALEN ORDERED PO REPLACEMENT, TOLERATED WELL, AND AWAITING RECHECK OF k+. RIGHT FA IV INTACT, AND NO LONGER PAINFUL AFTER STOPPING THE k+. C/O BACK AND NECK PAIN THROUGH NIGHT. RELIEF NOTED WITH IV FENTANYL. PERITONEAL DIALYSIS THROUGH NIGHT, NO ISSUES, TOLERATED WELL. CALLS APPROPRIATELY FOR ANY NEEDED ASSISTANCE.
[2020-09-18 08:01] LABS: CALCIUM 7.8 mg/dL (8.5-10.1)
[2020-09-18 08:03] LABS: CREATININE 12.8 mg/dL (0.6-1.0); POTASSIUM 3.6 mmol/L (3.5-5.1)
[2020-09-18 09:19] VITALS: BP 108/75
[2020-09-18] MEDS ORDERED: REGLAN 5 MG TAB5 MG PO (11:43)
[2020-09-18 12:06] VITALS: BP 108/75
--- NOTE | 2020-09-18 12:36 | NUR ---
Received awake on bed. Due medications given as prescribed, able to swallow meds w/o difficulty. On room air. Vital signs stable. On MS, not on telemetry; no complains and signs of chest pain, crushing sensation and heaviness noted. On regular diet- tolerating well; no nausea, no vomiting and no abdominal pain noted. On blood sugar monitoring, taken and recorded accordingly. With sliding scale insulin ordered, given as prescribed. Falls bundle in place. Assisted in ADLs. On peritoneal dialysis- part maker aware; with L AV fistula in place- no signs of infection and bleeding noted; With L abdominal port- dressing C/D/I. With SL at R FA- intact and flushing well. To continue monitoring patient. With relative at bedside- update given. Pt seen and examined by Dr Blandon, discharge orders made. Discharge instructions, follow up schedule and printed prescription given and instructed to patient; discharge forms signed. Complained of pain, due PRN pain meds given as prescribed. K level checked post correction this AM, 3.6- Dr Blandon informed and aware.
[2020-09-18] MEDS ORDERED: URSODIOL300 MG PO (13:39)
--- NOTE | 2020-09-20 08:36 | HC ---
[facility] [place] [address] CONSULTATION Name: ODESSA JUARES Room #: 463-P [facility] IN ..#: [id number] Admission: 09/16/20 Attend Phys: Parth Blandon MD Discharge: 09/18/20 Date of : [birth year] Report #: [id number] THIS REPORT FOR: cc: Bruce Lama MD, Michael D. MD Al-Alice,Lars Millard MD ~ DATE OF SERVICE: 09/16/2020 REASON FOR CONSULTATION: End-stage renal disease. REASON FOR PRESENTATION: Nausea and vomiting. HISTORY OF PRESENT ILLNESS: This is a very well-known patient to me. She is an unfortunate 30-year-old with history of diabetes mellitus and hypertension. She is in end-stage renal disease, maintained on peritoneal dialysis. She was never diagnosed to have gastroparesis but she continues to have major nausea and vomiting. She has had recurrent admissions for the above-mentioned symptoms. She presented yesterday with the above-mentioned symptoms and was diagnosed to have urinary tract infection based on UA. She is currently being treated accordingly. She was hypotensive. She also reported the above-mentioned GI symptoms and was admitted for further evaluation and management. I was consulted to assist with the management of her peritoneal dialysis. PAST MEDICAL HISTORY: 1. End-stage renal disease, maintained on peritoneal dialysis. 2. Diabetes mellitus. 3. Hypertension. PAST SURGICAL HISTORY: 1. section. 2. Cholecystectomy. SOCIAL HISTORY: No drug, alcohol abuse. FAMILY HISTORY: Significant for diabetes mellitus and end-stage renal disease. ALLERGIES: None. MEDICATIONS: 1. Promethazine. 2. Amlodipine. 3. Lisinopril. 4. Lantus. [facility] [place] [address] CONSULTATION Name: ODESSA JUARES Channing Room #: 463-P [facility]#: [id number] Admission: 09/16/20 Attend Phys: Parth Blandon MD Discharge: 09/18/20 Date of : [birth year] Report #: [id number] REVIEW OF SYSTEMS: GENERAL: No fever or chills, but significant for weakness. CARDIOVASCULAR: No chest pain or palpitation. PULMONARY: No cough or hemoptysis. GASTROINTESTINAL: As per the history of present illness. GENITOURINARY: No frequency, no urgency. NEUROLOGICAL: No headache, no dizziness. PHYSICAL EXAMINATION: VITAL SIGNS: Temperature 36.8, pulse rate is 87, respiratory rate is 18, blood pressure is 108/66. HEAD AND NECK: No jugular venous distention, no bruit, no thyromegaly. CHEST: No crackles. CARDIOVASCULAR: No rub. ABDOMEN: Soft, nontender with a peritoneal dialysis catheter. EXTREMITIES: Lower extremities, no edema. LABORATORY VALUES: White blood cell count is 9.9. Chemistry reveals sodium of 140, potassium of 3.6, BUN of 28, creatinine of 17.5. Chest x-ray with no edema. ASSESSMENT, IMPRESSION AND PLAN: 1. End-stage renal disease. 2. Persistent nausea and vomiting. 3. Vaginal bleeding. 4. Continue with the usual peritoneal dialysis. 5. Gastrointestinal consultation. 6. Gynecological evaluations. 7. p.r.n. nausea and vomiting medications. 8. Need a definitive diagnosis and treatment plan. <ELECTRONICALLY SIGNED> By: Lars Roe MD 09/20/20 0836 0939 1011 Lars oRe MD /nt
--- NOTE | 2020-09-20 17:06 | PATH ---
[facility] [address] [place] [address] PATHOLOGY RPT PROCEDURE Name: ODESSA JUARES Channing Room #: 463-P DIS IN M.R.#: [id number] Admission: 09/16/20 Date of : [birth year] Discharge: 09/18/20 Report #: [id number] Path Case #: [id number] L[facility] Accession Number: [id number] . 01 Material submitted: . stomach - RANDOM GASTRIC BIOPSIES R/O H. PYLORI . 01 Clinical history: . N/V, UTI, ESRD . 02 Diagnosis: Gastric mucosa, random gastric, rule out H. pylori, endoscopic biopsy: - Moderate reactive gastropathy. - Negative for intestinal metaplasia or atrophy. - Negative for Helicobacter pylori (properly-controlled immunohistochemical stain performed). . (IUV:mml; 09/20/2020) QL 09/20/2020 1225 Local . 02 Electronically signed: . Smitha Box MD, Pathologist NPI- [id number] . 01 Gross description: . Received in formalin labeled "[place] Juares, random gastric BX rule out H. pylori" are multiple zarco-brown soft tissue fragments measuring in aggregate 1.6 x 0.3 x 0.1 cm. The specimen is submitted entirely in A1. ([facility]; 09/18/2020) [facility] 09/20/2020 1236 Local . 02 Pathologist provided ICD-10: K31.9 . 02 CPT . 610689, E11075 Specimen Comment: A courtesy copy of this report has been sent to [phone] Performed at: [address], [place] [id number] MD Quinton Sousa MD Phone: [phone] Performed at: [address] [id number] MD Smitha Box MD Phone: [phone]
== END 2020-09-18 14:16 | disposition home or self-care (01) | DRG 871 ==
LOC: ER 21:54 → 4W 09-16 00:41 → EROBS 09-16 00:41 → 4W 09-16 01:01
PROVIDERS: Emergency Medicine; Nurse Practitioner Family; ADMIT Hospitalist; ATTEND Hospitalist
PROC: 3E1M39Z Irrigation of Peritoneal Cavity using Dialysate, Percutaneous Approach (ICD-10-PCS; principal; 2020-09-17)
PROC: 0DB68ZX Excision of Stomach, Via Natural or Artificial Opening Endoscopic, Diagnostic (ICD-10-PCS; 2020-09-17)
DX: A41.9 Sepsis, unspecified organism (principal); N18.6 End stage renal disease; N39.0 Urinary tract infection, site not specified; E87.2 Acidosis; I12.0 Hypertensive chronic kidney disease with stage 5 chronic kidney disease or end stage renal disease; K29.70 Gastritis, unspecified, without bleeding; E11.43 Type 2 diabetes mellitus with diabetic autonomic (poly)neuropathy; K31.84 Gastroparesis; I95.9 Hypotension, unspecified; E78.00 Pure hypercholesterolemia, unspecified; N93.9 Abnormal uterine and vaginal bleeding, unspecified; E11.22 Type 2 diabetes mellitus with diabetic chronic kidney disease; E87.6 Hypokalemia; K59.09 Other constipation; K21.00 Gastro-esophageal reflux disease with esophagitis, without bleeding; R79.89 Other specified abnormal findings of blood chemistry; F41.9 Anxiety disorder, unspecified; G43.909 Migraine, unspecified, not intractable, without status migrainosus; Z20.828 Contact with and (suspected) exposure to other viral communicable diseases; Z90.49 Acquired absence of other specified parts of digestive tract; Z99.2 Dependence on renal dialysis; Z79.4 Long term (current) use of insulin; Z98.891 History of uterine scar from previous surgery; Z87.891 Personal history of nicotine dependence; Z79.899 Other long term (current) drug therapy
CPT/HCPCS: 10045; 10047; 33000; 62110; 62900; 70005

== ENCOUNTER 2020-12-22 20:48 | Emergency (ER) | payer OTHER ==
[~2020-12-22] VITALS: Ht 175.3 cm; Wt 65.8 kg
[~2020-12-22 20:48] MED LIST changes: +REGLAN 5 MG TAB5 MG PO; +URSODIOL300 MG PO
[2020-12-22 21:49] LABS: ABSOLUTE NEUTROPHILS 3.9 thou/uL (1.4-8.2); BASOPHILS 0.9 % (0.0-2.0); HEMATOCRIT 40.6 % (37.0-47.0); HEMOGLOBIN 13.1 gm/dL (12.0-15.0); LYMPHOCYTES 15.6 % (24.0-44.0); MCH 30.1 pg (26.0-34.0); MCHC 32.1 g/dL (28.0-37.0); MCV 93.5 fL (80.0-100.0); PLATELET COUNT 185 thou/uL (150-400); POLYS 78.5 % (36.0-66.0); RBC 4.34 mil/uL (4.20-5.00); RDW 15.1 % (10.5-14.5); WBC 4.9 thou/uL (4.0-11.0)
[2020-12-22 21:53] LABS: CALCIUM 8.4 mg/dL (8.5-10.1); CREATININE 6.5 mg/dL (0.6-1.0); POTASSIUM 3.2 mmol/L (3.5-5.1)
[2020-12-22 21:59] LABS: ALBUMIN 2.6 g/dL (3.4-5.0); TOTAL BILIRUBIN 0.5 mg/dL (0.2-1.0)
[2020-12-22] MEDS ORDERED: REGLAN 10 MG TA10 MG PO (22:11)
[2020-12-22 22:30] VITALS: BP 176/103
== END 2020-12-22 22:30 | disposition home or self-care (01) ==
LOC: ER 20:48
PROVIDERS: Nurse Practitioner
DX: K31.84 Gastroparesis (principal); G43.909 Migraine, unspecified, not intractable, without status migrainosus; F17.210 Nicotine dependence, cigarettes, uncomplicated; E11.22 Type 2 diabetes mellitus with diabetic chronic kidney disease; I12.0 Hypertensive chronic kidney disease with stage 5 chronic kidney disease or end stage renal disease; N18.6 End stage renal disease; Z79.899 Other long term (current) drug therapy; Z79.4 Long term (current) use of insulin

== ENCOUNTER 2021-01-13 19:56 | Emergency (ER) | payer OTHER ==
[~2021-01-13] VITALS: Ht 175.3 cm; Wt 65.8 kg
[~2021-01-13 19:56] MED LIST changes: +REGLAN 10 MG TA10 MG PO
[2021-01-13 20:17] LABS: URINE BILIRUBIN NEGATIVE (Negative); URINE BLOOD 1+ (Negative); URINE COLOR YELLOW; URINE GLUCOSE-RANDOM* TRACE (Negative); URINE KETONES NEGATIVE (Negative); URINE LEUKOCYTES-REFLEX NEGATIVE (Negative); URINE NITRITE-REFLEX NEGATIVE (Negative); URINE PROTEIN (DIPSTICK) 2+ (Negative); URINE UROBILINOGEN 0.2 E.U./dl (0.2-1.0)
[2021-01-13 20:23] LABS: URINE CLARITY HAZY
[2021-01-13 20:26] LABS: CASTS None Seen /LPF (None Seen); MUCUS 0-3 Light strn/LPF (None Seen); SQUAMOUS 0-3 Few /LPF (0-3); URINE WBC-REFLEX 0-5 Rare /HPF (0-5)
[2021-01-13 20:27] LABS: CRYSTALS None Seen /LPF (None Seen); URINE RBC None Seen /HPF (0-2)
[2021-01-13 20:49] LABS: ABSOLUTE NEUTROPHILS 3.7 thou/uL (1.4-8.2); BASOPHILS 0.5 % (0.0-2.0); EOSINOPHILS 3.7 % (0.0-3.0); HEMOGLOBIN 11.2 gm/dL (12.0-15.0); LYMPHOCYTES 28.8 % (24.0-44.0); MCH 29.5 pg (26.0-34.0); MCHC 32.1 g/dL (28.0-37.0); MCV 91.7 fL (80.0-100.0); MONOCYTES 7.3 % (1.0-8.0); PLATELET COUNT 147 thou/uL (150-400); POLYS 59.7 % (36.0-66.0); RBC 3.81 mil/uL (4.20-5.00); RDW 14.7 % (10.5-14.5); WBC 6.2 thou/uL (4.0-11.0)
[2021-01-13 21:06] LABS: ALBUMIN 2.4 g/dL (3.4-5.0); CALCIUM 7.6 mg/dL (8.5-10.1); CREATININE 7.4 mg/dL (0.6-1.0); TOTAL BILIRUBIN 0.3 mg/dL (0.2-1.0); TOTAL PROTEIN 5.5 g/dL (6.4-8.2)
[2021-01-13 21:14] LABS: POTASSIUM 2.8 mmol/L (3.5-5.1)
[2021-01-13] MEDS ORDERED: TORSEMIDE10 MG PO (21:32)
[2021-01-13] MEDS ORDERED: MOTEGRITY2 MG PO (21:33)
[2021-01-14] VITALS: BP 150/100
== END 2021-01-14 | disposition admitted as inpatient to this hospital (09) ==
LOC: ER 19:56
PROVIDERS: Emergency Medicine
DX: N83.201 Unspecified ovarian cyst, right side (principal); E87.6 Hypokalemia; N18.9 Chronic kidney disease, unspecified; G43.909 Migraine, unspecified, not intractable, without status migrainosus; F17.210 Nicotine dependence, cigarettes, uncomplicated; E11.22 Type 2 diabetes mellitus with diabetic chronic kidney disease; I12.9 Hypertensive chronic kidney disease with stage 1 through stage 4 chronic kidney disease, or unspecified chronic kidney disease; Z79.4 Long term (current) use of insulin; Z79.899 Other long term (current) drug therapy

== ENCOUNTER 2021-02-20 17:56 | Emergency (ER) | payer OTHER ==
[~2021-02-20] VITALS: Ht 170.2 cm; Wt 66.7 kg
[~2021-02-20 17:56] MED LIST changes: +MOTEGRITY2 MG PO
[2021-02-20 19:03] LABS: CALCIUM 8.9 mg/dL (8.5-10.1); CREATININE 7.3 mg/dL (0.6-1.0); POTASSIUM 3.2 mmol/L (3.5-5.1); WBC 17.1 thou/uL (4.0-11.0)
[2021-02-20 19:09] LABS: ALBUMIN 2.8 g/dL (3.4-5.0); HEMATOCRIT 40.5 % (37.0-47.0); HEMOGLOBIN 13.1 gm/dL (12.0-15.0); MCH 29.6 pg (26.0-34.0); MCHC 32.4 g/dL (28.0-37.0); MCV 91.2 fL (80.0-100.0); PLATELET COUNT 205 thou/uL (150-400); RBC 4.44 mil/uL (4.20-5.00); TOTAL BILIRUBIN 0.6 mg/dL (0.2-1.0); TOTAL PROTEIN 6.7 g/dL (6.4-8.2)
[2021-02-20 19:54] LABS: POLYCHROMASIA 1+; TARGET CELLS 1+
[2021-02-20 19:55] LABS: ANISOCYTOSIS SLIGHT; OVALOCYTES OCCASIONAL; SCHISTOCYTES OCCASIONAL
[2021-02-20 19:56] LABS: LARGE PLATELETS RARE
[2021-02-20 20:10] LABS: ABSOLUTE NEUTROPHILS 15.4 thou/uL (1.4-8.2)
[2021-02-20 20:54] VITALS: BP 168/96
[2021-02-21] MEDS ORDERED: NORCO5 PO (13:50)
[2021-02-21] MEDS ORDERED: ZOFRAN ODT4 MG PO (13:50)
== END 2021-02-20 20:56 | disposition left against medical advice (07) ==
LOC: ER 17:56
PROVIDERS: Emergency Medicine
DX: R11.2 Nausea with vomiting, unspecified (principal); K31.84 Gastroparesis; D72.829 Elevated white blood cell count, unspecified; E11.22 Type 2 diabetes mellitus with diabetic chronic kidney disease; I12.0 Hypertensive chronic kidney disease with stage 5 chronic kidney disease or end stage renal disease; N18.6 End stage renal disease; F17.210 Nicotine dependence, cigarettes, uncomplicated; G43.909 Migraine, unspecified, not intractable, without status migrainosus; Z79.4 Long term (current) use of insulin; Z79.899 Other long term (current) drug therapy

== ENCOUNTER 2021-02-21 11:50 | Emergency (ER) | payer OTHER ==
[~2021-02-21] VITALS: Ht 172.7 cm; Wt 65.8 kg
[2021-02-21 13:32] LABS: CALCIUM 9.1 mg/dL (8.5-10.1); CREATININE 6.9 mg/dL (0.6-1.0)
[2021-02-21 13:33] LABS: ABSOLUTE NEUTROPHILS 11.4 thou/uL (1.4-8.2); BASOPHILS 0.2 % (0.0-2.0); EOSINOPHILS 0.6 % (0.0-3.0); HEMOGLOBIN 12.3 gm/dL (12.0-15.0); LYMPHOCYTES 8.2 % (24.0-44.0); MCH 29.2 pg (26.0-34.0); MCHC 32.2 g/dL (28.0-37.0); MCV 90.5 fL (80.0-100.0); PLATELET COUNT 202 thou/uL (150-400); RDW 15.8 % (10.5-14.5)
[2021-02-21 13:36] LABS: ALBUMIN 2.8 g/dL (3.4-5.0); TOTAL BILIRUBIN 0.7 mg/dL (0.2-1.0); TOTAL PROTEIN 6.6 g/dL (6.4-8.2)
[2021-02-21] MEDS ORDERED: ZOFRAN ODT4 MG PO (13:50)
[2021-02-21] MEDS ORDERED: NORCO5 PO (13:50)
[2021-02-21 14:47] VITALS: BP 122/74
--- NOTE | 2021-02-22 07:02 | EKG ---
[place] [address] [facility] [place] [address] ELECTROCARDIOGRAM REPORT Name: ODESSA JUARES Channing Room #: [facility]#: [id number] Admission: 02/21/21 Attend Phys: Discharge: 02/21/21 Date of : [birth year] Report #: [id number] [facility] ED Test Date: 2021-02-21 Test Time: 13:41:31 Pat Name: ODESSA JUARES Department: Room: Gender: F Needle Punch Operator: ODESSA : 1990 Requested By: Dutch Farley Order Number: [id number] MD: Isidoro Doan Measurements Intervals [place] Rate: 90 P: 51 [place]: 133 QRS: 56 QRSD: 85 T: -52 QT: 367 QTc: 449 Interpretive Statements Sinus rhythm Nonspecific T abnormalities, diffuse leads Compared to ECG 09/15/2020 22:29:22 Sinus tachycardia no longer present Possible ischemia no longer present T-wave abnormality still present Electronically Signed On 02-22-2021 7:02:50 CDT by Isidoro Doan [email or web address] <ELECTRONICALLY SIGNED> By: Isidoro Doan MD, [facility] 02/22/21 0702 1341 134 Isidoro Doan MD, FACC /EPI
== END 2021-02-21 14:46 | disposition home or self-care (01) ==
LOC: ER 11:50
PROVIDERS: Emergency Medicine
DX: R11.2 Nausea with vomiting, unspecified (principal); E11.22 Type 2 diabetes mellitus with diabetic chronic kidney disease; I12.0 Hypertensive chronic kidney disease with stage 5 chronic kidney disease or end stage renal disease; N18.6 End stage renal disease; F17.210 Nicotine dependence, cigarettes, uncomplicated; G43.909 Migraine, unspecified, not intractable, without status migrainosus; Z99.2 Dependence on renal dialysis; Z79.4 Long term (current) use of insulin; Z79.899 Other long term (current) drug therapy

== ENCOUNTER 2021-03-23 10:54 | Emergency (ER) | payer OTHER ==
[~2021-03-23] VITALS: Ht 175.3 cm; Wt 65.8 kg
[~2021-03-23 10:54] MED LIST changes: +NORCO5 PO; +ZOFRAN ODT4 MG PO
[2021-03-23 11:25] LABS: ABSOLUTE NEUTROPHILS 5.9 thou/uL (1.4-8.2); BASOPHILS 0.7 % (0.0-2.0); EOSINOPHILS 3.4 % (0.0-3.0); HEMATOCRIT 32.3 % (37.0-47.0); HEMOGLOBIN 10.7 gm/dL (12.0-15.0); LYMPHOCYTES 20.7 % (24.0-44.0); MCH 30.2 pg (26.0-34.0); MCHC 33.2 g/dL (28.0-37.0); MONOCYTES 5.3 % (1.0-8.0); PLATELET COUNT 206 thou/uL (150-400); POLYS 69.9 % (36.0-66.0); RBC 3.55 mil/uL (4.20-5.00); RDW 15.8 % (10.5-14.5); WBC 8.5 thou/uL (4.0-11.0)
[2021-03-23 11:34] LABS: CALCIUM 8.5 mg/dL (8.5-10.1); CREATININE 7.4 mg/dL (0.6-1.0); POTASSIUM 4.3 mmol/L (3.5-5.1)
[2021-03-23 11:40] LABS: ALBUMIN 2.6 g/dL (3.4-5.0); TOTAL BILIRUBIN 0.3 mg/dL (0.2-1.0); TOTAL PROTEIN 6.4 g/dL (6.4-8.2)
[2021-03-23 12:09] LABS: URINE BILIRUBIN NEGATIVE (Negative); URINE BLOOD NEGATIVE (Negative); URINE CLARITY CLEAR; URINE COLOR YELLOW; URINE GLUCOSE-RANDOM* NEGATIVE (Negative); URINE KETONES NEGATIVE (Negative); URINE LEUKOCYTES-REFLEX NEGATIVE (Negative); URINE NITRITE-REFLEX NEGATIVE (Negative); URINE PROTEIN (DIPSTICK) 2+ (Negative); URINE SPECIFIC GRAVITY 1.015 (1.005-1.035); URINE UROBILINOGEN 0.2 E.U./dl (0.2-1.0)
[2021-03-23 12:28] LABS: CASTS None Seen /LPF (None Seen); CRYSTALS None Seen /LPF (None Seen); SQUAMOUS >10 Many /LPF (0-3)
[2021-03-23 12:31] LABS: RENAL EPITHELIAL CELLS 0-3 Few /LPF (None Seen); URINE RBC None Seen /HPF (NONE SEEN); URINE WBC-REFLEX 0-5 Rare /HPF (0-5)
[2021-03-23] MEDS ORDERED: CEPHALEXIN500 MG PO (13:10)
[2021-03-23 13:38] VITALS: BP 143/95
== END 2021-03-23 13:40 | disposition home or self-care (01) ==
LOC: ER 10:54
PROVIDERS: Emergency Medicine
DX: N39.0 Urinary tract infection, site not specified (principal); E11.22 Type 2 diabetes mellitus with diabetic chronic kidney disease; I12.0 Hypertensive chronic kidney disease with stage 5 chronic kidney disease or end stage renal disease; N18.6 End stage renal disease; G43.909 Migraine, unspecified, not intractable, without status migrainosus; F17.210 Nicotine dependence, cigarettes, uncomplicated; Z99.2 Dependence on renal dialysis; Z79.4 Long term (current) use of insulin; Z79.899 Other long term (current) drug therapy

== ENCOUNTER 2021-04-04 16:53 | Emergency (ER) | payer OTHER ==
[~2021-04-04] VITALS: Ht 172.7 cm; Wt 66.2 kg
[~2021-04-04 16:53] MED LIST changes: +CEPHALEXIN500 MG PO
[2021-04-04 18:01] LABS: ABSOLUTE NEUTROPHILS 10.1 thou/uL (1.4-8.2); BASOPHILS 0.3 % (0.0-2.0); EOSINOPHILS 0.1 % (0.0-3.0); HEMATOCRIT 28.5 % (37.0-47.0); HEMOGLOBIN 9.5 gm/dL (12.0-15.0); LYMPHOCYTES 6.3 % (24.0-44.0); MCH 30.2 pg (26.0-34.0); MCHC 33.3 g/dL (28.0-37.0); MCV 90.7 fL (80.0-100.0); MONOCYTES 4.6 % (1.0-8.0); PLATELET COUNT 193 thou/uL (150-400); POLYS 88.7 % (36.0-66.0); RBC 3.14 mil/uL (4.20-5.00); RDW 15.4 % (10.5-14.5); WBC 11.4 thou/uL (4.0-11.0)
[2021-04-04 18:10] LABS: ANION GAP 8 mmol/L (7-16); BUN 40 mg/dL (7-18); CALCIUM 8.4 mg/dL (8.5-10.1); CHLORIDE 104 mmol/L (98-107); CO2 28 mmol/L (21-32); CREATININE 8.8 mg/dL (0.6-1.0); GLUCOSE 130 mg/dL (74-106); SODIUM 140 mmol/L (136-145)
[2021-04-04 18:16] LABS: ALBUMIN 2.3 g/dL (3.4-5.0); DIRECT BILIRUBIN < 0.1 mg/dL (<0.1-0.2); LIPASE 76 U/L (73-393); SGOT 28 U/L (15-37); SGPT 42 U/L (30-65); TOTAL BILIRUBIN 0.6 mg/dL (0.2-1.0)
[2021-04-04 18:17] LABS: POTASSIUM 5.3 mmol/L (3.5-5.1)
[2021-04-04 19:15] LABS: URINE BILIRUBIN NEGATIVE (Negative); URINE BLOOD 1+ (Negative); URINE CLARITY CLEAR; URINE COLOR YELLOW; URINE GLUCOSE-RANDOM* NEGATIVE (Negative); URINE KETONES NEGATIVE (Negative); URINE NITRITE-REFLEX NEGATIVE (Negative); URINE PROTEIN (DIPSTICK) 2+ (Negative); URINE SPECIFIC GRAVITY 1.015 (1.005-1.035); URINE UROBILINOGEN 0.2 E.U./dl (0.2-1.0)
[2021-04-04 19:18] LABS: URINE LEUKOCYTES-REFLEX 1+ (Negative)
[2021-04-04 19:22] LABS: BACTERIA-REFLEX >30 Many /HPF (None Seen); CASTS None Seen /LPF (None Seen); CRYSTALS None Seen /LPF (None Seen); SQUAMOUS 4-10 Moderate /LPF (0-3); URINE RBC 3-10 Few /HPF (NONE SEEN); URINE WBC-REFLEX 6-15 Few /HPF (0-5)
[2021-04-04] MEDS ORDERED: PERCOCET 5-3251 EACH PO (20:14)
[2021-04-04] MEDS ORDERED: ONDANSETRON HCL4 M2 PO (20:16)
[2021-04-04] MEDS ORDERED: CEPHALEXIN500 MG PO (20:18)
[2021-04-04 20:32] VITALS: BP 151/96
== END 2021-04-04 20:33 | disposition home or self-care (01) ==
LOC: ER 16:53
PROVIDERS: Nurse Practitioner
DX: R07.89 Other chest pain (principal); N39.0 Urinary tract infection, site not specified; I12.0 Hypertensive chronic kidney disease with stage 5 chronic kidney disease or end stage renal disease; E11.22 Type 2 diabetes mellitus with diabetic chronic kidney disease; N18.6 End stage renal disease; G43.909 Migraine, unspecified, not intractable, without status migrainosus; R11.2 Nausea with vomiting, unspecified; F17.210 Nicotine dependence, cigarettes, uncomplicated; Z79.899 Other long term (current) drug therapy; Z99.2 Dependence on renal dialysis; Z98.890 Other specified postprocedural states

== ENCOUNTER 2021-04-06 19:46 | Emergency (ER) | payer OTHER ==
[~2021-04-06] VITALS: Ht 172.7 cm; Wt 64.9 kg
[~2021-04-06 19:46] MED LIST changes: +ONDANSETRON HCL4 M2 PO; +PERCOCET 5-3251 EACH PO
[2021-04-06 20:14] LABS: ABSOLUTE NEUTROPHILS 7.4 thou/uL (1.4-8.2); BASOPHILS 0.7 % (0.0-2.0); EOSINOPHILS 0.5 % (0.0-3.0); HEMOGLOBIN 9.7 gm/dL (12.0-15.0); LYMPHOCYTES 13.1 % (24.0-44.0); MCH 30.5 pg (26.0-34.0); MCHC 33.3 g/dL (28.0-37.0); MCV 91.8 fL (80.0-100.0); MONOCYTES 5.1 % (1.0-8.0); PLATELET COUNT 198 thou/uL (150-400); POLYS 80.6 % (36.0-66.0); RBC 3.16 mil/uL (4.20-5.00); RDW 15.5 % (10.5-14.5); WBC 9.2 thou/uL (4.0-11.0)
[2021-04-06 20:26] LABS: ANION GAP 7 mmol/L (7-16); BUN 36 mg/dL (7-18); CALCIUM 8.7 mg/dL (8.5-10.1); CHLORIDE 102 mmol/L (98-107); CO2 28 mmol/L (21-32); CREATININE 8.2 mg/dL (0.6-1.0); GLUCOSE 107 mg/dL (74-106); POTASSIUM 4.1 mmol/L (3.5-5.1); SODIUM 137 mmol/L (136-145)
[2021-04-06 20:37] LABS: ALBUMIN 2.3 g/dL (3.4-5.0); LIPASE 96 U/L (73-393); SGOT 16 U/L (15-37); SGPT 31 U/L (14-59); TOTAL BILIRUBIN 0.5 mg/dL (0.2-1.0); TOTAL PROTEIN 6.1 g/dL (6.4-8.2); TROPONIN-I <0.06 ng/mL (<0.06)
[2021-04-06 21:49] VITALS: BP 155/93
--- NOTE | 2021-04-07 08:13 | EKG ---
[address] [address] ELECTROCARDIOGRAM REPORT Name: JH JUARESYEVGENIY Snell Room #: [facility]#: [id number] Admission: 04/06/21 Attend Phys: Discharge: 04/06/21 Date of : [birth year] Report #: [id number] [facility] ED Test Date: 2021-04-06 Test Time: 20:34:59 Pat Name: ODESSA JUARES Department: Room: Gender: Database Administration Associate: yuridia : 1990 Requested By: Mookie Rivera Order Number: [id number] MD: Lg Mei Measurements Intervals [place] Rate: 87 P: 46 [place]: 124 QRS: 39 QRSD: 85 T: 6 QT: 354 QTc: 426 Interpretive Statements Sinus rhythm Compared to ECG 02/21/2021 13:41:31 T-wave abnormality no longer present Electronically Signed On 04-07-2021 8:13:01 CDT by Lg Mei [email or web address] <ELECTRONICALLY SIGNED> By: Lg Mei MD 04/07/21812 33 33 Lg Mei MD /YURIDIA
== END 2021-04-06 21:53 | disposition home or self-care (01) ==
LOC: ER 19:46
PROVIDERS: Physician Assistant
DX: E11.43 Type 2 diabetes mellitus with diabetic autonomic (poly)neuropathy (principal); K31.84 Gastroparesis; K20.80 Other esophagitis without bleeding; R11.2 Nausea with vomiting, unspecified; I10 Essential (primary) hypertension; G43.909 Migraine, unspecified, not intractable, without status migrainosus; F17.210 Nicotine dependence, cigarettes, uncomplicated; Z79.899 Other long term (current) drug therapy

== ENCOUNTER 2021-06-07 02:00 | Inpatient (IN) | payer OTHER ==
[~2021-06-07] VITALS: Ht 172.7 cm; Wt 63.0 kg
[2021-06-07] VITALS (42 sets, daily range): BP systolic 115–248; BP diastolic 74–142
[2021-06-07 02:32] LABS: ABSOLUTE NEUTROPHILS 6.3 thou/uL (1.4-8.2); BASOPHILS 0.5 % (0.0-2.0); EOSINOPHILS 0.7 % (0.0-3.0); HEMATOCRIT 40.8 % (37.0-47.0); LYMPHOCYTES 7.2 % (24.0-44.0); MCHC 31.9 g/dL (28.0-37.0); MCV 90.8 fL (80.0-100.0); MONOCYTES 3.4 % (1.0-8.0); PLATELET COUNT 163 thou/uL (150-400); POLYS 88.2 % (36.0-66.0); RDW 17.3 % (10.5-14.5); WBC 7.2 thou/uL (4.0-11.0)
[2021-06-07 02:46] LABS: CALCIUM 8.8 mg/dL (8.5-10.1); CREATININE 7.7 mg/dL (0.6-1.0); POTASSIUM 4.3 mmol/L (3.5-5.1)
[2021-06-07 02:52] LABS: ALBUMIN 3.3 g/dL (3.4-5.0); TOTAL BILIRUBIN 0.8 mg/dL (0.2-1.0); TOTAL PROTEIN 7.3 g/dL (6.4-8.2)
--- NOTE | 2021-06-07 07:33 | NUR ---
RADIOLOGIST PHONED WITH ADDENDUM TO CT REPORT. NOTED AND REPORTED TO ONCOMING NURSE.
--- NOTE | 2021-06-07 08:54 | NUR ---
PT ARRIVED TO THE UNIT ON VIA ONE RN ESCORT, PT HAD RECEIVED 4MG OF MORPHINE ONETIME ORDER AT THE ER, CARDENE GTT WAS RUNNING AT 5 AT THE TIME OF ARRIVAL. TOA 0840, BELONGINGS WITH PT ARE PURPLE CROCKS, MASK, SOCKS AND NOTHING ELSE. PT HAD RECEIVED CHEST ACCESS FOR DIALYSIS RECENTLY. INSTRUCTIONAL SYSTEMS DESIGN CONSULTANT NAEEM STARTED PROCESS AT 0853. PT IS DROWSY AND SEEN SLEEPING. NO COMPLAINTS OF NAUSEA/VOMITTING AT THIS TIME. TO BE THE HOSPITALIST, RN WILL MAKE KNOWN. WILL BE DIFFICULT TO RETRIEVE INFORMATION FROM PT DUE TO DROWSINESS BUT WILL MAKE BEST ATTEMPT.
[2021-06-08] VITALS (31 sets, daily range): BP systolic 131–171; BP diastolic 83–108
[2021-06-08 01:06] LABS: HEP B SURFACE Ab(ANTI-HBS Reactive (()); HEPATITIS B SURFACE AG Negative (Negative)
[2021-06-08 07:55] LABS: ABSOLUTE NEUTROPHILS 3.8 thou/uL (1.4-8.2); EOSINOPHILS 0.1 % (0.0-3.0); HEMATOCRIT 36.3 % (37.0-47.0); HEMOGLOBIN 11.7 gm/dL (12.0-15.0); LYMPHOCYTES 5.9 % (24.0-44.0); MCH 28.7 pg (26.0-34.0); MCHC 32.1 g/dL (28.0-37.0); MCV 89.3 fL (80.0-100.0); MONOCYTES 19.9 % (1.0-8.0); PLATELET COUNT 106 thou/uL (150-400); POLYS 73.1 % (36.0-66.0); RBC 4.07 mil/uL (4.20-5.00); RDW 17.7 % (10.5-14.5); WBC 5.2 thou/uL (4.0-11.0)
[2021-06-08 08:11] LABS: CALCIUM 8.5 mg/dL (8.5-10.1); MAGNESIUM 1.9 mg/dL (1.8-2.4)
[2021-06-08 08:12] LABS: CREATININE 5.9 mg/dL (0.6-1.0)
--- NOTE | 2021-06-08 10:07 | NUR ---
Per Dr. Lucas with nephrology, madeline for pt to DC after dialysis this AM. Will confer with hospitalist to confirm.
--- NOTE | 2021-06-08 14:26 | NUR ---
YANELI completed assessment w/ pt's spouse Kian via; telephone [phone]. Pt was not available at time of assessment. NOK: Spouse Kian [phone] Insurance: Medicare & Medicaid of [place] PCP: Bruce Lama MD Pt lives 1 lvl in home w/ spouse and three kids (13, 10, 6) ADLs: Independent w/ assistance from spouse if needed DME: [facility] HH/SNF/REHAB/LTAC/DIALYSIS: DIALYSIS MWF [facility] DPOA: None - Pt spouse to make decisions if incapacitated [facility] [facility] [address] [facility]: Family vehicle YANELI will fax updated clinical to [facility] fax: [phone] D/C PLAN: Undetermined
[2021-06-09] VITALS (21 sets, daily range): BP systolic 116–187; BP diastolic 63–112
--- NOTE | 2021-06-09 04:29 | NUR ---
PT MAKING SLOW PROGRESS TOWARDS GOALS. C/O HEADACHE OVERNIGHT. HIGHER PAIN RATING OF HEADACHE COINCIDES WITH HIGHER BP MEASUREMENT. X1 OXYCODONE GIVEN WITH NO RELIEF. X1 DOSE IV DILAUDID GIVEN. PT REPORTING HEADACHE 5/10 THIS MORNING. SUDDEN EPISODE OF NAUSEA WITH MINIMAL EMESIS. RELIEVED WITH IV ZOFRAN. CONTINUE TO MONITOR.
[2021-06-09 16:10] LABS: HEMATOCRIT 38.5 % (37.0-47.0); HEMOGLOBIN 12.5 gm/dL (12.0-15.0); MCH 28.8 pg (26.0-34.0); MCHC 32.5 g/dL (28.0-37.0); MCV 88.8 fL (80.0-100.0); RBC 4.33 mil/uL (4.20-5.00); RDW 17.8 % (10.5-14.5); WBC 5.7 thou/uL (4.0-11.0)
[2021-06-09 16:21] LABS: CALCIUM 8.4 mg/dL (8.5-10.1); CREATININE 6.5 mg/dL (0.6-1.0); MAGNESIUM 1.8 mg/dL (1.8-2.4)
--- NOTE | 2021-06-09 22:19 | NUR ---
PT A/OX4.VSS.PT SEEMS VERY SLEEPY AND TIRED.EASILY AROUSED AND CO-OPERATIVE WITH CARE.DENIES NAUSEA ON ASSESSMENT BUT DO C/O HEADACHE.PAIN MEDS GIVEN ORDERED.ORDERS GIVEN TO TRANSFER TO M/S FLOOR.PATIENT AND SPOUSE NOTIFIED OF THE TRANSFER ORDERS,INAGREEMENT.REPORT GIVEN TO FLOOR RN.PT TRANSPORTED VIA BED W/O ANY NEW EVENT/CONCERNS.
[2021-06-10 04:00] VITALS: BP 164/105
--- NOTE | 2021-06-10 04:47 | NUR ---
Pt transferred from ICU @2200.A/OX4,drowsy but easily arousable.VSS. Up with SBA. Denied pain on assessment,but later complained of a headace and abd pain.Medicated per EMAR with some relief reported. NSR on telemetry. Remains NPO,IVF infusing via RAC w/o any problems. Right chest cath in place/LAC fistula. Fall precauitons in place,will continue to monitor pt.
[2021-06-10 06:29] LABS: CALCIUM 7.9 mg/dL (8.5-10.1); MAGNESIUM 1.9 mg/dL (1.8-2.4)
[2021-06-10 06:32] LABS: CREATININE 7.5 mg/dL (0.6-1.0)
[2021-06-10 07:10] VITALS: BP 160/103
[2021-06-10 15:00] VITALS: BP 149/100
--- NOTE | 2021-06-10 16:38 | NUR ---
CARE TEAM INDICATED THAT PT IS PROGRESSING SLOWLY TOWARD GOAL OF DISCHARGE. IT IS ANTIPATED THAT PT WILL BE ABLE TO DC HOME TO SELF CARE ONCE MEDICALLY STABLE. FAX DC ORDRS, VAHID, AND FLOW SHEETS TO CHERELLE [facility]KEON AT [phone].
--- NOTE | 2021-06-10 19:05 | NUR ---
PT IS A&O*4. REPORT FEELING SICK, NAUSEA, VOMITTING DURING DIALYSIS IN THE MORNING. VS IS STABLE EXCEPT FOR HTN, BLOOD SUGAR CHECKED, 02 98%, 1L OXYGEN APPLIED BY NASAL CANNULA FOR COMFORT. REPORT IN PATIENT. NAUSE MEDICATION HAS BEEN GIVEN ORDERED. SCOPOLAMINE PATCH APPLIED BEHINED RIGHT EAR. PT REPORT PAIN ON HEAD, STOMACH AND BACK. IV NORCO HAS BEEN GIVEN PER ORDER. PT REPORT GENERAL FEELING BETTER AFTER DIALYSIS IS DONE. WILL KEEP MONITOR PT'S SAFETY.
[2021-06-10 19:50] VITALS: BP 159/103
--- NOTE | 2021-06-11 05:47 | NUR ---
Assumed pt care at 1900. A/OX4,VSS. C/o abd/back/headache,medicated per EMAR with relief reported. Up with SBA to bathroom. C/o nausea but no emesis,medicated with some relief reported. Right chest catheter in place,LAC fistula as well as LLQ peritoneal dialysis catheter. Fall precautions in place,calls approp for help.
[2021-06-11 07:10] VITALS: BP 139/85
[2021-06-11] MEDS ORDERED: CLONIDINE1 EAC1 TRANSDERM (12:45)
[2021-06-11] MEDS ORDERED: ACETAMINOPHEN325 M1 PO (12:45)
[2021-06-11] MEDS ORDERED: Transderm-Scop 1MG/7 TRANSDERM (12:45)
[2021-06-11] MEDS ORDERED: PROTONIX 20 MG20 M1 PO (12:45)
[2021-06-11] MEDS ORDERED: PROMS25 WY RECTAL (12:45)
[2021-06-11] MEDS ORDERED: MIRALAX17 GM PO (12:45)
[2021-06-11] MEDS ORDERED: REGLAN 5 MG TAB5 MG PO (12:45)
[2021-06-11] MEDS ORDERED: TRANSDERM-SCOP1 EACH TRANSDERM (12:45)
[2021-06-11] MEDS ORDERED: ZOFRAN ODT4 MG PO (12:45)
[2021-06-11] MEDS ORDERED: AMLODIPINE BESY10 MG PO (12:45)
[2021-06-11 12:53] VITALS: BP 139/85
--- NOTE | 2021-06-11 12:54 | NUR ---
PT IS A&O*4, ROOM AIR. NO COMPLAIN OF NASUEA. REPORT PAIN ON HEAD, BACK AND HIP, PARTIAL RELIEFED WITH IV DILAUDID Q4 0.25MG. GENERAL WEAKNESS AND CONSPITATION. HEAR RATE AROUND 90 ON THE MONITOR. WILL KEEP MONITOR PATIENT'S SAFETY UNTIL DISCHARGE.
[2021-06-11 15:00] VITALS: BP 111/54
== END 2021-06-11 17:03 | disposition home or self-care (01) | DRG 73 ==
LOC: ER 02:00 → EROBS 06:54 → ICU 06:54 → 4W 06-09 22:14
PROVIDERS: Emergency Medicine; Internal Medicine Nephrology; Nurse Practitioner; ADMIT Internal Medicine; ATTEND Internal Medicine
PROC: 5A1D70Z Performance of Urinary Filtration, Intermittent, Less than 6 Hours Per Day (ICD-10-PCS; principal; 2021-06-07)
PROC: 5A1D70Z Performance of Urinary Filtration, Intermittent, Less than 6 Hours Per Day (ICD-10-PCS; 2021-06-08)
PROC: 5A1D70Z Performance of Urinary Filtration, Intermittent, Less than 6 Hours Per Day (ICD-10-PCS; 2021-06-10)
DX: E11.43 Type 2 diabetes mellitus with diabetic autonomic (poly)neuropathy (principal); N18.6 End stage renal disease; I12.0 Hypertensive chronic kidney disease with stage 5 chronic kidney disease or end stage renal disease; I16.1 Hypertensive emergency; E11.22 Type 2 diabetes mellitus with diabetic chronic kidney disease; F32.9 Major depressive disorder, single episode, unspecified; F19.11 Other psychoactive substance abuse, in remission; F41.9 Anxiety disorder, unspecified; K21.9 Gastro-esophageal reflux disease without esophagitis; K31.84 Gastroparesis; G43.909 Migraine, unspecified, not intractable, without status migrainosus; Z90.49 Acquired absence of other specified parts of digestive tract; Z99.2 Dependence on renal dialysis; Z98.891 History of uterine scar from previous surgery; Z79.899 Other long term (current) drug therapy; Z79.4 Long term (current) use of insulin
CPT/HCPCS: 10047; 10078; 32100

== ENCOUNTER 2021-08-08 06:18 | Inpatient (IN) | payer OTHER ==
[~2021-08-08] VITALS: Ht 172.7 cm; Wt 64.9 kg
[2021-08-08] VITALS (8 sets, daily range): BP systolic 157–194; BP diastolic 98–119
[~2021-08-08 06:18] MED LIST changes: +ACETAMINOPHEN325 M1 PO; +AMLODIPINE BESY10 MG PO; +CLONIDINE1 EAC1 TRANSDERM; +MIRALAX17 GM PO; +PROTONIX 20 MG20 M1 PO; +TRANSDERM-SCOP1 EACH TRANSDERM; +Transderm-Scop 1MG/7 TRANSDERM
[2021-08-08 07:02] LABS: ABSOLUTE NEUTROPHILS 13.6 thou/uL (1.4-8.2); BASOPHILS 0.7 % (0.0-2.0); EOSINOPHILS 0.1 % (0.0-3.0); HEMATOCRIT 41.7 % (37.0-47.0); HEMOGLOBIN 13.4 gm/dL (12.0-15.0); MCH 26.1 pg (26.0-34.0); MCHC 32.1 g/dL (28.0-37.0); MCV 81.4 fL (80.0-100.0); MONOCYTES 2.6 % (1.0-8.0); PLATELET COUNT 145 thou/uL (150-400); POLYS 90.6 % (36.0-66.0); RBC 5.12 mil/uL (4.20-5.00); RDW 20.2 % (10.5-14.5)
[2021-08-08 07:21] LABS: CALCIUM 9.4 mg/dL (8.5-10.1); CREATININE 9.4 mg/dL (0.6-1.0); POTASSIUM 3.6 mmol/L (3.5-5.1)
[2021-08-08 14:22] LABS: AMP/METHAMP Negative (Negative); BARBITURATES Negative (Negative); BENZODIAZEPINES Negative (Negative); COCAINE Negative (Negative); METHADONE Negative (Negative); OPIATES POSITIVE (Negative); PCP Negative (Negative)
[2021-08-09 05:26] LABS: HEMATOCRIT 31.4 % (37.0-47.0); MCH 26.9 pg (26.0-34.0); MCHC 32.6 g/dL (28.0-37.0); MCV 82.6 fL (80.0-100.0); PLATELET COUNT 93 thou/uL (150-400); RDW 20.2 % (10.5-14.5)
[2021-08-09 05:57] LABS: HEMOGLOBIN 10.2 gm/dL (12.0-15.0)
[2021-08-09 06:26] LABS: CALCIUM 8.2 mg/dL (8.5-10.1); CREATININE 10.2 mg/dL (0.6-1.0); POTASSIUM 3.5 mmol/L (3.5-5.1)
[2021-08-09 08:18] VITALS: BP 162/90
--- NOTE | 2021-08-09 08:47 | NUR ---
RECEIVED CARE OF THIS PATIENT AT 2320 FROM ED VIA CART ACCOMPANIED BY ED KATY DOMÍNGUEZ ALERT AND ORIENTED X4. HAS TESSIO IN R CHEST, AND FISTULA L FOREARM. UP WITH STANDBY ASSIST. REMAINS NPO FOR PROCEDURE AFTER DIALYSIS. C/O PAIN, MED GIVEN. C/O NAUSEA, MED GIVEN. SLEPT OFF AND ON DURING NIGHT.
[2021-08-09 09:23] LABS: ABSOLUTE NEUTROPHILS 6.2 thou/uL (1.4-8.2); ANISOCYTOSIS 1+; PLATELET ESTIMATE DECREASED
[2021-08-09 15:00] VITALS: BP 131/81
[2021-08-09] MEDS ORDERED: TRANSDERM-SCOP1 EACH TRANSDERM (15:11)
[2021-08-09] MEDS ORDERED: ZOFRAN ODT4 MG PO (15:11)
[2021-08-09] MEDS ORDERED: PROMS25 WY RECTAL (15:11)
[2021-08-09] MEDS ORDERED: REGLAN 5 MG TAB5 MG PO (15:11)
[2021-08-09] MEDS ORDERED: CARAFATE 11 GM/10 M1 PO (15:13)
[2021-08-09 16:00] VITALS: BP 149/97
[2021-08-09 17:11] VITALS: BP 149/97
[2021-08-09 17:37] VITALS: BP 149/97
--- NOTE | 2021-08-10 16:10 | P ---
[facility] [place] [address] PROCEDURE REPORT Name: ODESSA JUARES Room #: 459-P [facility] IN .R.#: [id number] Admission: 08/08/21 Attend Phys: Artis Hunt MD Discharge: 08/09/21 Date of : 88 Report #: [id number] THIS REPORT FOR: cc: Bruce Lama MD, Michael D. MD McElhinney, Christian C. MD ~ cc: Artis Hunt MD DATE OF SERVICE: 08/09/2021 PROCEDURE PERFORMED: Upper endoscopy with biopsies. HISTORY OF PRESENT ILLNESS: The patient is a 31-year-old female with recurrent nausea, vomiting. She has a history of diabetes, renal failure on hemodialysis. CT scan of the abdomen is showing persistent distal esophageal wall thickening; however, this has improved; diffuse fairly prominent gastric wall thickening, persisting. Last upper endoscopy on 09/07/2020 showing grade B erosive esophagitis located in the distal esophagus and moderate gastritis. Biopsies were negative for H. pylori at that time. She does have a history of gastroparesis, but also had a gastric emptying study that was normal in 2019. She does report Phenergan has been helpful in the past. She is currently on a scopolamine patch as well as Reglan. Plan is for upper endoscopy. DESCRIPTION OF PROCEDURE: The risks and benefits of the procedure were explained to the patient, those risks including but not limited to bleeding, perforation, and the risk of sedation. She understood these risks and gave informed consent. Sedation was given using propofol per Anesthesia. Next, using a standard Olympus upper endoscope, scope was placed in the patient's mouth and advanced under direct vision through the esophagus, stomach, and into the second portion of the duodenum. The larynx was normal in appearance. The upper and mid esophagus were normal. In the distal esophagus, grade C esophagitis was noted, possible short segment of Kenny's was seen. Biopsies were obtained. Overall, there was a diffuse gastritis throughout the stomach. There was a moderate amount of liquid also. This was aspirated away. Biopsies were obtained to rule out H. pylori. No evidence of ulcerations or bleeding. The pylorus was normal and patent. The duodenal bulb, first and second portion were all normal. The scope was then withdrawn and the procedure terminated. The patient tolerated the procedure well. IMPRESSION: 1. 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 2. Gastritis. 3. Otherwise normal upper endoscopy. RECOMMENDATIONS: 1. Await biopsy results. [address] [address] PROCEDURE REPORT Name: MORODESSA Channing Room #: 459-P [facility] IN ..#: [id number] Admission: 08/08/21 Attend Phys: Artis Hunt MD Discharge: 08/09/21 Date of : 88 Report #: [id number] 2. Continue PPI therapy. 3. We will add liquid Carafate at this time. 4. The patient has already been on Zofran, Reglan, Compazine in the past, also on a scopolamine patch. Difficult case overall. We will add Phenergan as she believes this has been helpful recently. She can take this on a p.r.n. basis p.o. at home as well. We will advance the diet if she tolerates this. Plan for possible discharge later today or tomorrow. Thank you for allowing me to participate in her care. <ELECTRONICALLY SIGNED> By: Raymond Almaguer MD 08/10/21 1610 1316 [id number] Raymond Almaguer MD /nt
--- NOTE | 2021-08-10 17:07 | PATH ---
[facility] [address] [place] [address] PATHOLOGY RPT PROCEDURE Name: ODESSA JUARES Channing Room #: 459-P DIS IN M.R.#: [id number] Admission: 08/08/21 Date of : 88 Discharge: 08/09/21 Report #: [id number] Path Case #: [id number] [facility] Accession Number: [id number] . 01 Material submitted: . PART A: gastrointestinal site - GASTRITIS BIOPSY PART B: esophagus - DISTAL ESOPHAGUS BX. Modifiers: distal . 01 Clinical history: . R/O H. PYLORI R/O COLÓN'S NAUSEA AND VOMITTING, ABDOMINAL PAIN ESOPHAGITIS, GASTRITIS EGD . 02 Diagnosis: A. Gastric mucosa, gastritis R/O H. pylori, endoscopic biopsy: - Moderate reactive gastropathy. - Negative for intestinal metaplasia or atrophy. - Negative for Helicobacter pylori (properly controlled immunohistochemical stain performed). . B. Squamous mucosa, distal esophagus R/O Colón's, endoscopic biopsy: - Moderate active esophagitis with features of reflux esophagitis. - Negative for intestinal metaplasia or dysplasia. ([facility]; 08/10/2021) QMS 08/10/2021 1254 Local . 02 Electronically signed: . Smitha Box MD, Pathologist NPI- [id number] . 01 Gross description: . A. The specimen is received in formalin, labeled "[place] Juares, gastritis biopsy". Received are 4 segments of pale zarco tissue ranging in size from 0.2 to 0.4 cm in maximum dimensions. The specimen is entirely submitted in cassette A1. . B. The specimen is received in formalin, labeled "[place] Juares, distal esophagus biopsy". Received are 2 segments of pale zarco tissue measuring 0.2 and 0.3 cm in maximum dimensions. The specimen is entirely submitted in cassette B1. ([facility]; 08/09/2021) NRI/NRI 08/09/2021 1844 Local . 02 Pathologist provided ICD-10: K31.9, K20.[address] [address] PATHOLOGY RPT PROCEDURE Name: ODESSA JUARES Room #: 459-P DIS IN M.R.#: [id number] Admission: 08/08/21 Date of : 88 Discharge: 08/09/21 Report #: [id number] Path Case #: [id number] . 02 CPT . 498328, [id number], [id number] Specimen Comment: A courtesy copy of this report has been sent to [phone], [phone] Specimen Comment: [phone], Specimen Comment: Report sent to , DR LAMBERT / DR NARANJO Performed at: [address] [facility], [place], [place] [id number] MD Quinton Sousa MD Phone: [phone] Performed at: [address] [facility] [id number] MD Smitha Box MD Phone: [phone]
== END 2021-08-09 17:37 | disposition home or self-care (01) | DRG 391 ==
LOC: ER 06:18 → 4W 08:33 → EROBS 08:33 → 4W 23:21
PROVIDERS: Emergency Medicine; Nurse Practitioner; ADMIT Internal Medicine; ATTEND Internal Medicine
PROC: 5A1D70Z Performance of Urinary Filtration, Intermittent, Less than 6 Hours Per Day (ICD-10-PCS; 2021-08-08)
PROC: 0DB68ZX Excision of Stomach, Via Natural or Artificial Opening Endoscopic, Diagnostic (ICD-10-PCS; principal; 2021-08-09)
PROC: 0DB38ZX Excision of Lower Esophagus, Via Natural or Artificial Opening Endoscopic, Diagnostic (ICD-10-PCS; principal; 2021-08-09)
DX: K31.84 Gastroparesis (principal); N18.6 End stage renal disease; I12.0 Hypertensive chronic kidney disease with stage 5 chronic kidney disease or end stage renal disease; K29.70 Gastritis, unspecified, without bleeding; R11.2 Nausea with vomiting, unspecified; R10.9 Unspecified abdominal pain; K21.00 Gastro-esophageal reflux disease with esophagitis, without bleeding; I16.0 Hypertensive urgency; F12.10 Cannabis abuse, uncomplicated; E11.43 Type 2 diabetes mellitus with diabetic autonomic (poly)neuropathy; K59.00 Constipation, unspecified; G43.909 Migraine, unspecified, not intractable, without status migrainosus; G89.29 Other chronic pain; F17.210 Nicotine dependence, cigarettes, uncomplicated; F41.9 Anxiety disorder, unspecified; K22.70 Barrett's esophagus without dysplasia; K38.8 Other specified diseases of appendix; H54.62 Unqualified visual loss, left eye, normal vision right eye; M54.9 Dorsalgia, unspecified; E11.22 Type 2 diabetes mellitus with diabetic chronic kidney disease; Z20.822 Contact with and (suspected) exposure to COVID-19; Z99.2 Dependence on renal dialysis; Z87.19 Personal history of other diseases of the digestive system; Z98.891 History of uterine scar from previous surgery; Z79.899 Other long term (current) drug therapy
CPT/HCPCS: 10045; 32100; 62110; 62900; 70005